=== PATIENT | female | born 1950 | race Caucasian/White ===

== ENCOUNTER 2017-05-26 09:45 | Inpatient (IN) | payer OTHER, MEDICARE ==
[2017-05-06 14:39] VITALS: BMI 44.0
--- NOTE | 2017-05-06 15:15 | PAT Medication Instructions ---
Service Date May 06, 2017. Current Home Medication List Alprazolam (Xanax), 0.25 MG PO UD PRN for Anxiety Azelastine Hcl-Fluticasone Pro (Dymista), 1-2 SPRY STEVE QAM Escitalopram Oxalate (Lexapro), 20 MG PO QAM Hctz/Losartan (Hyzaar 12.5MG/50MG), 1 TAB PO QAM Hydrocodon/Acetaminophen 5MG/300MG (Vicodin (5MG/300MG)), 1 TAB PO Q6H PRN for Pain Levothyroxine Sodium (Levothyroxine Sodium), 1 TAB PO QAM Methenamine Hippurate (Methenamine Hippurate), 1 TAB PO QAM Onabotulinumtoxina (Botox), Unknown Dose Pantoprazole (Pantoprazole Sodium), 1 TAB PO QAM Ranitidine (Zantac), 150 MG PO HS Solifenacin (Vesicare), 10 MG PO QAM [Steroid Inje], Unknown Dose Medication Instructions For Your Scheduled Surgery - Hold the following medications the morning of surgery: Solifenacin (Vesicare), 10 MG PO QAM Hctz/Losartan (Hyzaar 12.5MG/50MG), 1 TAB PO QAM Methenamine Hippurate (Methenamine Hippurate), 1 TAB PO QAM - Take the following medications the morning of surgery with a sip of water OTHERWISE NOTHING TO EAT OR DRINK AFTER MIDNIGHT: Azelastine Hcl-Fluticasone Pro (Dymista), 1-2 SPRY STEVE QAM Escitalopram Oxalate (Lexapro), 20 MG PO QAM Levothyroxine Sodium (Levothyroxine Sodium), 1 TAB PO QAM Pantoprazole (Pantoprazole Sodium), 1 TAB PO QAM Hydrocodon/Acetaminophen 5MG/300MG (Vicodin (5MG/300MG)), 1 TAB PO Q6H PRN for Pain (may take if needed up to 4 hours prior to surgery) Alprazolam (Xanax), 0.25 MG PO UD PRN for Anxiety - Take the following medications as scheduled the night before surgery: Hydrocodon/Acetaminophen 5MG/300MG (Vicodin (5MG/300MG)), 1 TAB PO Q6H PRN for Pain Ranitidine (Zantac), 150 MG PO HS Alprazolam (Xanax), 0.25 MG PO UD PRN for Anxiety If you have any questions please call us at [phone] or [phone] or [phone]
--- NOTE | 2017-05-06 15:53 | DIAGNOSTIC IMAGING REPORT ---
CHEST PREADMISSION(PA/LAT) CLINICAL HISTORY: Preoperative chest COMPARISON STUDY: No previous studies for comparison. FINDINGS: The heart is at the upper limits of normal in size. There is no failure. There is no focal pulmonary consolidation. There are no pleural effusions.[ IMPRESSION: No active disease in the chest. Electronically signed by: Biju Mobley M.D. 05/06/2017 3:52 PM Dictated Date/Time: 05/06/2017 3:52 PM
[2017-05-06 16:16] LABS: BASO % 0.7 %; BASO ABS # 0.04 K/uL (0-0.2); COMPLETE YES; EOS % 3.2 %; HEMATOCRIT 32.9 % (37-47); IG% 0.3 %; LYMPH % 35.9 %; LYMPH ABS # 2.15 K/uL (1.2-3.4); MEAN CELL VOLUME 89.6 fL (80-100); MEAN CORPUSCULAR HEMOGLOBIN 30.5 pg (25-34); MEAN PLATELET VOLUME 8.9 fL (7.4-10.4); MONO % 9.5 %; NEUT % 50.4 %; PLATELET COUNT 235 K/uL (130-400); RED BLOOD COUNT 3.67 M/uL (4.2-5.4); WHITE BLOOD COUNT 5.99 K/uL (4.8-10.8)
[2017-05-06 16:35] LABS: BUN/CREATININE RATIO 17.1 (10-20); CREATININE 1.31 mg/dl (0.60-1.20); POTASSIUM 4.3 mmol/L (3.5-5.1)
[2017-05-06 16:42] LABS: URINE APPEARANCE CLEAR (CLEAR); URINE BILIRUBIN NEG (NEG); URINE COLOR YELLOW; URINE EPITHELIAL CELL AUTO 20-30 /lpf (0-5); URINE NITRITE NEG (NEG); URINE SPECIFIC GRAVITY 1.008 (1.000-1.030); UROBILINOGEN NEG (NEG); ZZUR CULT IF INDIC CLEAN CATCH NO
[2017-05-06 16:50] LABS: MANUAL MICROSCOPIC REQUIRED? NO; REVIEW REQ? NO
[~2017-05-26] VITALS: Ht 154.9 cm; Wt 105.5 kg
[2017-05-26] VITALS (8 sets, daily range): BP systolic 111–161; BP diastolic 59–68; PULSE 63–89; TEMP 36.3–37.2; O2SAT 94–100; Ht 154.9 cm; Wt 105.5 kg
[~2017-05-26 09:45] MED LIST: ALPR-411 PO; AZEL30SP NAE; BOTU200I; CLINDAMYCIN 600 MG/54 ML D5W IV SCH; ESCI1TAB10 PO; HYDR-3419 PO; HYZ/50125 PO; LACTATED RINGER'S 1000ML 1,000 ML IV SCH; LEVO125T5 PO; MTHH1 PO; PRT40 PO; SOLI10TA2 PO; ZNTT/150 PO; [UNRECOGNIZED DRUG - REMARK]
[2017-05-26] MEDS ORDERED: ONDANSETRON INJ 2 MG/ML 2 ML VIAL IV PRN ×2 (10:00→14:30)
[2017-05-26] MEDS ORDERED: MEPERIDINE HCL 25 MG/ML CARP IV PRN (10:00)
[2017-05-26] MEDS ORDERED: LABETALOL HCL IV 5 MG/ML 20ML IV PRN (10:00)
[2017-05-26] MEDS ORDERED: HYDROmorphone INJ 1 MG/ML SYR IV PRN (10:00)
[2017-05-26] MEDS ORDERED: FENTANYL CITRATE INJ 50 MCG/1 ML 2 ML VIAL IV PRN (10:00)
[2017-05-26] MEDS ORDERED: ATROPINE SULFATE 0.1 MG/ML 5ML SYR IV PRN (10:00)
[2017-05-26] MEDS ORDERED: EpHEDrine SULFATE INJ 50 MG/ML AMP IV PRN (10:00)
--- NOTE | 2017-05-26 11:54 | History & Physical Bridge Note ---
H&P Re-Evaluation Bridge Note: I have examined the patient, reviewed the History & Physical and in the interval since the performance of the History & Physical I have noted the following changes of clinical significance: No changes noted
--- NOTE | 2017-05-26 11:57 | History and Physical ---
History & Physical Date May 26, 2017. Chief Complaint Back and leg pain History of Present Illness The patient is a 66 year old female with complaints of back and leg pain Additional History Hepatic Disease: No Endocrine Disorder: No Kidney Disease: No Hypertension: Yes Heart Disease: No Bleeding Tendencies: No Infectious Diseases: No Allergies Coded Allergies: Nitrofurantoin (Verified Allergy, Unknown, HEADACHE AND RASH, 05/26/17) Sulfamethoxazole w/Trimethoprim (Verified Allergy, Unknown, SORES ON SKIN AND IN THROAT, 05/26/17) Trimethoprim (Verified Allergy, Unknown, SORES, 05/26/17) Home Medications Scheduled Azelastine Hcl-Fluticasone Pro (Dymista), 1-2 SPRY STEVE QAM Escitalopram Oxalate (Lexapro), 20 MG PO QAM Hctz/Losartan (Hyzaar 12.5MG/50MG), 1 TAB PO QAM Levothyroxine Sodium (Levothyroxine Sodium), 1 TAB PO QAM Methenamine Hippurate (Methenamine Hippurate), 1 TAB PO QAM Pantoprazole (Pantoprazole Sodium), 1 TAB PO QAM Ranitidine (Zantac), 150 MG PO HS Scheduled PRN Alprazolam (Xanax), 0.25 MG PO UD PRN for Anxiety Hydrocodon/Acetaminophen 5MG/300MG (Vicodin (5MG/300MG)), 1 TAB PO Q6H PRN for Pain Miscellaneous Medications Onabotulinumtoxina (Botox), Unknown Dose [Steroid Inje], Unknown Dose Physical Examination Skin: warm/dry, no rash Eyes: normal inspection, EOMI, sclerae normal ENT: normal ENT inspection, pharynx normal Head: normocephalic, atraumatic Neck: supple, no adenopathy, trachea midline Respiratory/Chest: lungs clear, normal breath sounds, no respiratory distress Cardiovascular: regular rate, rhythm, no edema, no murmur Abdomen / GI: normal bowel sounds, non tender Back: normal inspection Extremities: normal inspection, normal range of motion Neurologic/Psych: no motor/sensory deficits, alert, normal reflexes, oriented x 3 Diagnosis Lumbar spinal stenosis with spondylolisthesis Plan of Treatment L4 5 decompression fusion possible L5-S1
[2017-05-26] MEDS ORDERED: FENTANYL CITRATE INJ 50 MCG/1 ML 2 ML VIAL ONE ×4 (11:58→15:03)
[2017-05-26] MEDS ORDERED: MIDAZOLAM HCL 1 MG/ML 2ML VIAL ONE (11:58)
[2017-05-26] MEDS ORDERED: SODIUM CHLORIDE 0.9% PF 50 ML VIAL ONE (12:17)
[2017-05-26] MEDS ORDERED: BACITRACIN 50000 UNIT VIAL ONE (12:17)
[2017-05-26] MEDS ORDERED: BUPIVACAINE/EPINEPHRINE 0.5% MPF 1:200,000 30 ML VIAL ONE (12:17)
[2017-05-26] MEDS ORDERED: HYDROmorphone INJ 2 MG/ML SYR/VIAL ONE (12:58)
[2017-05-26] MEDS ORDERED: PROPOFOL IV EMULSION 10 MG/ML 20 ML VIAL IV ONE (13:10)
[2017-05-26] MEDS ORDERED: ONDANSETRON INJ 2 MG/ML 2 ML VIAL ONE (13:10)
[2017-05-26] MEDS ORDERED: LIDOCAINE HCL 2% 2 ML VIAL (20MG/ML) ONE (13:10)
[2017-05-26] MEDS ORDERED: DEXAMETHASONE SOD INJ 4 MG/ML VIAL ONE (13:10)
[2017-05-26] MEDS ORDERED: NEOSTIGMINE METHYLSULFATE 1 MG/ML 10ML VIAL ONE (13:10)
[2017-05-26] MEDS ORDERED: GLYCOPYRROLATE INJ 0.2 MG/ML VIAL ONE (13:10)
[2017-05-26] MEDS ORDERED: EpHEDrine SULFATE 50MG/5ML SYR ONE (13:10)
[2017-05-26] MEDS ORDERED: FLOSEAL HEMOSTATIC MATRIX 10ML TOP ONE (13:32)
[2017-05-26] MEDS: LACTATED RINGER'S 1000ML 1,000 ML IV SCH ×2 (14:21→21:01)
[2017-05-26] MEDS ORDERED: SODIUM CHLORIDE 0.9% 1000ML 1,000 ML IV SCH (14:21)
--- NOTE | 2017-05-26 14:27 | [facility] Operative Report ---
Operative Report Operative Date May 26, 2017. Pre-Operative Diagnosis Lumbar Spinal Stenosis Post-Operative Diagnosis Lumbar Spinal Stenosis Procedure(s) Performed #1 lumbar decompression medial facet was foraminotomies L3 4 L4 5. #2 posterior spinal fusion L4 5. #3 placement posterior instrumentation L4 5. #4 interbody fusion L4 5. #5 placement peek cage 13 x 22 mm L4 5. #6 placement locally harvested morcellized autograft and posterior gutters. #7 placement infuse collagen sponge about mask graft in the posterior lateral gutters. Surgeon Kellee Decoration Checker Surgeon(s) Sabina Glover PA-C Estimated Blood Loss 275ML Findings Severe spinal stenosis with spondylolisthesis Specimens None per surgeon Description of Procedure Patient was met with preoperatively case discussed all questions addressed. After informed consent was obtained patient was taken to the operative suite placed in a prone position the Chris table on top Bart frame. All bony prominences were well-padded eyes inspected to ensure there is no external pressure placed upon them. This point the lumbar spine was prepped and draped nostril fashion. Sharp dissection with the assistance of Bovie cautery was performed onto an exposing the lamina and transverse processes of L4 5. From a caudal cephalad fashion complete laminectomy of L4 partial laminectomy of L3 was performed addressing severe lateral recess and foraminal stenosis. Pedicle screws then placed in L4 and L5 bilaterally with the assistance of fluoroscopy in the purposes debora placed. Through a transverse foraminal approach on the right a complete discectomy was performed and plate created to subcortical bleeding bone and a 13 x 26 mm the rods were then locked and final position bilaterally. The transverse processes of L4 and L5 burred to subcortical bleeding bone. Infuse calm sponge mask graft locally harvested morcellized autograft was placed in the posterior lateral gutters. 15 round KEVAN drain inserted. Incision was then closed with 1 Vicryl in the fascia 2-0 Vicryl subcutaneous C 4 Monocryl for final skin closure Steri-Strips sterile dressings placed. Patient we can take PACU stable condition. Please note Sabina Montoya was present throughout the entire procedure involved in patient positioning complex portions of the surgery and final skin closure. Peek cage filled with ostial amp bone graft tapped in position. I attest to the content of the Intraoperative Record and any orders documented therein. Any exceptions are noted below.
[2017-05-26] MEDS ORDERED: NALOXONE HCL 0.4 MG/1 ML VIAL/CARP IV PRN ×2 (14:30)
[2017-05-26] MEDS ORDERED: ALUMINUM/MAGNESIUM SUSP 30 ML UDC PO PRN (14:30)
[2017-05-26] MEDS ORDERED: CEFAZOLIN IV 2,000 MG in DEXTROSE 5% 50ML 50 ML IV SCH (14:30)
[2017-05-26] MEDS ORDERED: LORAZEPAM INJ 0.5 MG in SYRINGE 0.75 ML IV PRN (14:30)
[2017-05-26] MEDS ORDERED: FAMOTIDINE 20 MG TAB PO PRN (14:30)
[2017-05-26] MEDS ORDERED: DO NOT ADMINISTER FLU VACCINE PRN ×3 (14:30)
[2017-05-26] MEDS ORDERED: PROMETHAZINE HCL INJ 12.5 MG in SODIUM CHLORIDE 0.9% 50ML 50 ML IV PRN (14:30)
[2017-05-26] MEDS ORDERED: hydrOXYzine HCL 25 MG TAB PO PRN (14:30)
[2017-05-26] MEDS ORDERED: DO NOT ADMINISTER PNEUMOCOCCAL VACCINE PRN ×2 (14:30)
[2017-05-26] MEDS ORDERED: METOCLOPRAMIDE HCL INJ 5 MG/ML 2 ML VIAL IV PRN (14:30)
[2017-05-26] MEDS ORDERED: ACETAMINOPHEN 500 MG TAB PO PRN (14:30)
[2017-05-26] MEDS ORDERED: BISACODYL 10 MG SUPP PR PRN (14:30)
[2017-05-26] MEDS ORDERED: MAGNESIUM HYDROXIDE SUSP 30 ML UDC PO PRN (14:30)
[2017-05-26] MEDS ORDERED: ACETAMINOPHEN IV 100 ML IV PRN (14:30)
[2017-05-26] MEDS ORDERED: SOD PHOSPHATE/SOD BIPHOSPHATE ENEMA 132 ML BTL PR PRN (14:30)
[2017-05-26] MEDS ORDERED: LORAZEPAM 0.5 MG TAB PO PRN (14:30)
[2017-05-26] MEDS ORDERED: HYDROmorphone HCL 0.5MG/ML 50 ML CASSETTE ONE (14:40)
--- NOTE | 2017-05-26 15:31 | Anesthesiology Progress Note ---
Anesthesia Post Op Note Date & Time May 26, 2017 at 15:31 Vital Signs Pain Intensity: 4 Vital Signs Past 12 Hours Date Time Temp Pulse Resp B/P (MAP) Pulse Ox O2 Delivery O2 Flow Rate FiO2 05/26/17 15:25 36.4 70 16 131/61 97 Nasal Cannula 4 05/26/17 15:15 68 16 116/57 93 Nasal Cannula 4 05/26/17 15:05 74 16 150/63 98 Nasal Cannula 4 05/26/17 14:55 78 16 152/78 100 Oxymask 10 05/26/17 14:45 79 16 143/69 97 Oxymask 10 05/26/17 14:38 36.8 75 16 134/68 96 Oxymask 10 05/26/17 10:10 36.9 86 20 161/59 94 Room Air Notes Mental Status: alert / awake / arousable, participated in evaluation Pt Amnestic to Procedure: Yes Nausea / Vomiting: adequately controlled Pain: adequately controlled Airway Patency, RR, SpO2: stable & adequate BP & HR: stable & adequate Hydration State: stable & adequate Anesthetic Complications: no major complications apparent
[2017-05-26] MEDS: HYDROmorphone HCL 0.5MG/ML 50 ML CASSETTE IV PRN ×2 (15:41→23:08)
--- NOTE | 2017-05-26 16:30 | DIAGNOSTIC IMAGING REPORT ---
LUMBAR SPINE 2 OR 3 VIEW CLINICAL HISTORY: 66 years-old Female presenting with L4-L5 DECOMPRESSION/FUSION POSSIBLE L5-S1. TECHNIQUE: 2 fluoroscopic spot image(s) obtained as part of an intraoperative procedure. COMPARISON: 04/13/2017. FINDINGS/IMPRESSION: There has been interval bilateral transpedicular screw and debora fixation of L4-5 with laminectomy defect of L4 and interbody spacer. Grossly normal anatomic alignment. Please see surgical report for further details. Fluoroscopy dosage (mGy): Not available. Fluoroscopy time: 18 seconds. Number of fluoroscopic spot images: 2. Electronically signed by: Sanket Girard M.D. 05/26/2017 4:28 PM Dictated Date/Time: 05/26/2017 4:27 PM
[2017-05-26] MEDS ORDERED: PNEUMOCOCCAL POLYSACCHARIDES 25 MCG/0.5 ML VIAL/SYR IM. ONE (19:15)
[2017-05-26] MEDS ORDERED: INFLUENZA ADMINISTRATION CHARGE ONE (19:15)
[2017-05-26] MEDS ORDERED: PNEUMOCOCCAL ADMINISTRATION CHARGE ONE (19:15)
[2017-05-26] MEDS ORDERED: INFLUENZA VIRUS QUAD VACCINE 0.5 ML SYR IM. ONE (19:15)
[2017-05-26] MEDS ORDERED: INFLUENZA VACCINE HIGH DOSE 65+ 0.5 ML SYR IM. ONE (19:15)
[2017-05-26] MEDS: CEFAZOLIN IV 2,000 MG in SYRINGE 0 ML IV SCH (20:45)
[2017-05-26] MEDS: RANITIDINE HCL 150 MG TAB PO SCH (22:25)
[2017-05-26] MEDS: DOCUSATE SODIUM/SENNA 50/8.6MG TAB PO SCH (22:25)
[2017-05-26] MEDS: DEXAMETHASONE INJ 6 MG in SYRINGE 0 ML IV SCH (22:26)
[2017-05-27] VITALS: O2SAT 98
[2017-05-27] MEDS: CEFAZOLIN IV 2,000 MG in SYRINGE 0 ML IV SCH (03:43)
[2017-05-27 03:44] VITALS: BP 116/64; PULSE 65; TEMP 37.3; O2SAT 92
[2017-05-27] MEDS: LACTATED RINGER'S 1000ML 1,000 ML IV SCH (03:44)
[2017-05-27] MEDS: DEXAMETHASONE INJ 6 MG in SYRINGE 0 ML IV SCH ×2 (05:59→13:44)
[2017-05-27] MEDS ORDERED: NURSING VERBAL MED ORDER ONE (06:00)
[2017-05-27] MEDS ORDERED: HYDROmorphone INJ 1 MG/ML SYR IV PRN (06:00)
[2017-05-27] MEDS ORDERED: DC PCA SCH (06:00)
[2017-05-27] MEDS ORDERED: HYDROmorphone INJ 0.5 MG/0.5 ML SYR IV PRN (06:00)
[2017-05-27] MEDS: LEVOTHYROXINE 125 MCG TAB PO SCH (06:16)
--- NOTE | 2017-05-27 06:53 | Clinical Documentation Query ---
YOLIE Colvin : CLINICAL DOCUMENTATION QUERIES QUERY 1 OF 3 Patient is a 66 year old female who underwent elective posterior lumbar decompression and interbody spinal fusion on 05/26. BMI noted to be 44.0 kg/m*m. In order to capture this always clinically relevant data from the medical record, an associated condition must explicitly be documented by the provider. As appropriate, consider documentation as suggested below in order to capture the appropriate severity of illness and risk of mortality for your patient. In your clinical opinion is this patient: ( ) Obese ( ) Not Agree ( ) Other explanation of clinical findings (Please Explain) ( ) Unable to determine (Please Define) ( ) Need to Discuss The medical record reflects the following clinical findings, treatment, and risk factors. Clinical Indicators: BMI as noted above Treatment: n/a Risk Factors: Caloric intake > caloric expenditure QUERY 2 OF 3 Admission BUN, creatinine, and estimated GFR of 22 mg/dl, 1.31 mg/dl, and 49 ml/min. As appropriate, consider documentation as suggested below. Thank you. In your clinical opinion is this patient being managed for: ( ) Chronic kidney disease, stage 3 ( ) Not Agree ( ) Other explanation of clinical findings (Please Explain) ( ) Unable to determine (Please Define) ( ) Need to Discuss The medical record reflects the following clinical findings, treatment, and risk factors. Clinical Indicators: As above Treatment: Serial chemistries Risk Factors: Age, hypertension, medications QUERY 3 OF 3 PMH listed to include hypertension. However, home medication list includes: Alprazolam (Xanax), 0.25 MG PO UD PRN for Anxiety Azelastine Hcl-Fluticasone Pro (Dymista), 1-2 SPRY STEVE QAM Escitalopram Oxalate (Lexapro), 20 MG PO QAM Hctz/Losartan (Hyzaar 12.5MG/50MG), 1 TAB PO QAM Hydrocodon/Acetaminophen 5MG/300MG (Vicodin (5MG/300MG)), 1 TAB PO Q6H PRN for Pain Levothyroxine Sodium (Levothyroxine Sodium), 1 TAB PO QAM Methenamine Hippurate (Methenamine Hippurate), 1 TAB PO QAM Onabotulinumtoxina (Botox), Unknown Dose Pantoprazole (Pantoprazole Sodium), 1 TAB PO QAM Ranitidine (Zantac), 150 MG PO HS Solifenacin (Vesicare), 10 MG PO QAM [Steroid Inje], Unknown Dose In your clinical opinion is this patient being managed for: ( ) Anxiety, depression, GERD, hypothyroidism, recurrent UTI's, urinary frequency ( ) Not Agree ( ) Other explanation of clinical findings (Please Explain) ( ) Unable to determine (Please Define) ( ) Need to Discuss The medical record reflects the following clinical findings, treatment, and risk factors. Clinical Indicators: As above Treatment: As above Risk Factors: na Please clarify and document your clinical opinion in the progress notes and discharge summary. Terms such as "probable", "suspected", "likely", "questionable", "possible", or "still to be ruled out" are acceptable. IF IN AGREEMENT, YOU MUST DOCUMENT ABOVE DIAGNOSTIC STATEMENT IN DAILY PROGRESS NOTES AND DISCHARGE SUMMARY. This document is not part of the patient's record. Thank You, Sourav Bingham, RN [phone]
[2017-05-27 07:35] VITALS: BP 116/55; PULSE 68; TEMP 37.4; O2SAT 93
[2017-05-27] MEDS: OXYCODONE HCL IR 5 MG TAB (IMMEDIATE RELEASE) PO PRN ×2 (07:44→13:45)
[2017-05-27 07:58] LABS: COMPLETE YES; HEMATOCRIT 31.2 % (37-47); IG% 0.3 %; LYMPH % 8.2 %; LYMPH ABS # 0.86 K/uL (1.2-3.4); MEAN CELL VOLUME 88.1 fL (80-100); MEAN CORPUSCULAR HEMOGLOBIN 28.8 pg (25-34); MEAN CORPUSCULAR HGB CONC 32.7 g/dl (32-36); MEAN PLATELET VOLUME 8.4 fL (7.4-10.4); MONO % 3.3 %; NEUT % 88.2 %; PLATELET COUNT 221 K/uL (130-400); RED BLOOD COUNT 3.54 M/uL (4.2-5.4); WHITE BLOOD COUNT 10.54 K/uL (4.8-10.8)
[2017-05-27] MEDS: ESCITALOPRAM OXALATE 20 MG TAB PO SCH (08:23)
[2017-05-27] MEDS: PANTOprazole SOD 40 MG TAB PO SCH (08:23)
[2017-05-27] MEDS: LOSARTAN/HCTZ 50-12.5 EA TAB PO SCH (08:24)
[2017-05-27 08:33] LABS: BUN/CREATININE RATIO 15.5 (10-20); CALCIUM 8.8 mg/dl (8.5-10.1); CREATININE 1.12 mg/dl (0.60-1.20); POTASSIUM 3.9 mmol/L (3.5-5.1)
[2017-05-27] MEDS ORDERED: METHENAMINE HIPPURATE 1 GM TAB PO SCH (09:00)
[2017-05-27] MEDS ORDERED: RXC5 PO (12:08)
--- NOTE | 2017-05-27 12:09 | Discharge Instructions ---
Discharge Instructions Date of Service May 27, 2017. Admission Reason for Admission: Lumbar Spinal Stenosis Discharge Discharge Diagnosis / Problem: lumbar stenosis Discharge Goals Goal(s): Improve function Activity Recommendations Activity Limitations: per Instructions/Follow-up section . Instructions / Follow-Up Instructions / Follow-Up ACTIVITY RECOMMENDATIONS: SELF CARE INSTRUCTIONS AFTER THORACIC/LUMBAR FUSIONS 1. You may walk to your tolerance. It is good exercise for your legs and back. Expect some back and intermittent leg aches and pains. 2. You may perform "counter-top" level activities (make a sandwich, christina with a project, etc.). 3. No bending or lifting of more than 10 pounds or back twisting of any nature (roll like a log when turning in bed). 4. You may ride in a car for 20-30 minutes at a time. No driving until after your first visit with your doctor. 5. Frequent changes of position and restricting sitting to 30 minutes at a time will help limit the amount of back spasms and stiffness you may experience. 6. You may discontinue the use of ambulatory aids (cane, crutches, etc.) once your strength and confidence allow. 7. You may concession stand attendant the shower and let water strike your incision when you arrive home at least once daily. Do not take a tub bath, sit in a hot tub or go into a swimming pool until after your first recheck in the office. SPECIAL CARE INSTRUCTIONS: VERY IMPORTANT TO READ AND REVIEW A. Your surgical incision has been closed with a cosmetic suture under the skin that will dissolve in about 6 weeks. In 14 days, you can use a pair of clean scissors and cut the suture that is left outside of the skin at the ends of your incision. 1. The small skin tapes can be removed 7 days after surgery if they have not fallen off by that point. 2. You may keep the wound open to air as much as possible to promote healing after post-op day number 5 unless told otherwise by your doctor. 3. If you think the wound looks like it is becoming infected (redness or worsening drainage) and/or you are experiencing fever, chill or worsening back pain and muscle spasms, contact the office so that we may evaluate you as soon as possible. B. Complications are uncommon, but please contact us if you have any signs or symptoms of: 1. wound infection (fever higher than 102.5 degrees F, redness, separation of wound, drainage, or increasing pain from the incision) 2. blood clots in legs (pain, swelling, redness and warmth in legs) 3. urinary tract infection (fever higher than 102.5 degrees F, burning upon urination or increased frequency of urination) 4. nerve problems (inability to walk on your toes or heels, numbness, loss of bowel or bladder control) 5. any other symptoms that concern you C. Please call the office at if you have any concerns or questions about your operation or recovery. D. No smoking! Smoking drastically decreases the chance of a solid fusion. E. Do not take any anti-inflammatory medications (Indocin, Advil, Motrin, Aspirin, Naprosyn, etc.) as these may inhibit the chance of a solid fusion. Tylenol is okay to take for pain. MANAGING PAIN AFTER SPINAL SURGERY 1. Narcotic medication is intended for short-term use and will be provided for surgical pain. Surgical pain usually lasts for a period of 4-6 weeks. Narcotic medication includes Percocet, Vicodin, Darvocet, Tylenol #3 or Lortab. 2. Longer-term pain is more appropriately treated with non-narcotic medication such as Tylenol ES. 3. Muscle spasm is not appropriately treated with narcotics. Muscle relaxers such as Soma, Flexeril or Skelaxin can be used along with Tylenol ES. 4. Remember that we all live with some "aches and pains". This is not unusual or uncommon after an injury or as we get older. a. Back pain is expected and may include muscle spasms for 4 to 6 weeks after surgery. The pain should gradually improve. If the pain worsens for no apparent reason, please contact the office. b. Intermittent leg pain may also be experienced and should not be concerned about unless it worsens for no apparent reason. If so, please contact the office. 5. We will provide appropriate medication within the normal guidelines of their prescribed use. We will also be very cautious and aware of potential abuse and extended duration of patients' medication needs. a. Pain medications are for your comfort and to assist with sleep and rest so that the tissue can heal. They are not provided in order to return to normal activity and should not be used through the day. To do so or worsening pain at night can result from ongoing tissue damage and development of tolerance to the prescribed medicine. 6. Please allow 2-3 days to process refills. Prescriptions will not be mailed but must be picked up at the office. FOLLOW UP VISIT: Keep your scheduled follow-up appointment. Any questions, please call the office at . Current Hospital Diet Patient's current hospital diet: Regular Diet Discharge Diet Recommended Diet: Regular Diet Procedures Procedures Performed: #1 lumbar decompression medial facet was foraminotomies L3 4 L4 5. #2 posterior spinal fusion L4 5. #3 placement posterior instrumentation L4 5. #4 interbody fusion L4 5. #5 placement peek cage 13 x 22 mm L4 5. #6 placement locally harvested morcellized autograft and posterior gutters. #7 placement infuse collagen sponge about mask graft in the posterior lateral gutters. Pending Studies Studies pending at discharge: no Medical Emergencies . Who to Call and When: Medical Emergencies: If at any time you feel your situation is an emergency, please call 911 immediately. . Non-Emergent Contact Non-Emergency issues call your: Primary Care Provider . "Provider Documentation" section prepared by Tyree Goodson. . VTE Core Measure Inpt VTE Proph given/why not?: Katie Murray, SCD's
--- NOTE | 2017-05-27 13:51 | Progress Note ---
Progress Note Date of Service May 27, 2017. Progress Note Back pain is controlled leg symptoms markedly improved. Vital signs are stable. On exam she is interior bedside as good strength testing appears comfortable. Assessment status post lumbar depression fusion replant this time we anticipate therapy today and tomorrow home this weekend.
[2017-05-27 14:52] VITALS: BP 119/63; PULSE 76; TEMP 36.7; O2SAT 94
[2017-05-27 15:30] VITALS: O2SAT 94
[2017-05-27] MEDS: RANITIDINE HCL 150 MG TAB PO SCH (21:26)
[2017-05-27] MEDS: DOCUSATE SODIUM/SENNA 50/8.6MG TAB PO SCH (21:26)
[2017-05-27 22:56] VITALS: BP 118/65; PULSE 70; TEMP 37.5; O2SAT 94
[2017-05-28] MEDS: LEVOTHYROXINE 125 MCG TAB PO SCH (05:30)
[2017-05-28] MEDS: POLYETHYLENE (MIRALAX) 17 GM PACK PO SCH ×2 (05:30→12:04)
[2017-05-28 06:54] VITALS: BP 114/58; PULSE 56; TEMP 37.3; O2SAT 94
[2017-05-28] MEDS: ESCITALOPRAM OXALATE 20 MG TAB PO SCH (08:10)
[2017-05-28] MEDS: LOSARTAN/HCTZ 50-12.5 EA TAB PO SCH (08:10)
[2017-05-28] MEDS: PANTOprazole SOD 40 MG TAB PO SCH (08:10)
[2017-05-28] MEDS: OXYCODONE HCL IR 5 MG TAB (IMMEDIATE RELEASE) PO PRN ×2 (08:12→13:06)
--- NOTE | 2017-05-28 12:26 | Discharge Summary ---
Orthopedic Discharge Summary Admission Date/Reason May 26, 2017 at 12:00 Lumbar Spinal Stenosis. Discharge Date/Disposition May 28, 2017 Home Diagnosis Principal Diagnosis: Lumbar spinal stenosis Admission Physical Exam As per Admitting History & Physical. Hospital Course Patient underwent lumbar decompression fusion tolerated as well as taken to the orthopedic floor postop we. Postoperative day #1 is up and amatory progressed to postoperative day #2 leg symptoms were poorly improved substernally she was discharged home. Discharge orders and instructions found the chart for further review. Discharge Instructions Please refer to the electronic Patient Visit Report (Discharge Instructions) for additional information.
[2017-05-28 12:28] VITALS: BP 114/58; PULSE 56; TEMP 37.3; O2SAT 94
== END 2017-05-28 15:45 | disposition home or self-care (01) | DRG 454 ==
LOC: C.ACU 09:45 → C.MSN 12:00 → ENRESERV 15:12 → CANRESERV 15:12 → ENRESERV 15:19
PROVIDERS: ADMIT Orthopaedic Surgery Orthopaedic Surgery of the Spine; ATTEND Orthopaedic Surgery Orthopaedic Surgery of the Spine
PROC: 3E0U0GB Introduction of Recombinant Bone Morphogenetic Protein into Joints, Open Approach (ICD-10-PCS; principal; 2017-05-26 11:45)
PROC: 01NB3ZZ Release Lumbar Nerve, Percutaneous Approach (ICD-10-PCS; principal; 2017-05-26 11:45)
PROC: 0SG0071 Fusion of Lumbar Vertebral Joint with Autologous Tissue Substitute, Posterior Approach, Posterior Column, Open Approach (ICD-10-PCS; principal; 2017-05-26 11:45)
PROC: 0SG03AJ Fusion of Lumbar Vertebral Joint with Interbody Fusion Device, Posterior Approach, Anterior Column, Percutaneous Approach (ICD-10-PCS; principal; 2017-05-26 11:45)
PROC: 0ST20ZZ Resection of Lumbar Vertebral Disc, Open Approach (ICD-10-PCS; principal; 2017-05-26 11:45)
DX: M48.061 Spinal stenosis, lumbar region without neurogenic claudication (principal); Z68.41 Body mass index [BMI] 40.0-44.9, adult; M43.16 Spondylolisthesis, lumbar region; I12.9 Hypertensive chronic kidney disease with stage 1 through stage 4 chronic kidney disease, or unspecified chronic kidney disease; N18.3 Chronic kidney disease, stage 3 (moderate); K21.9 Gastro-esophageal reflux disease without esophagitis; D64.9 Anemia, unspecified; M19.90 Unspecified osteoarthritis, unspecified site; F41.9 Anxiety disorder, unspecified; F32.9 Major depressive disorder, single episode, unspecified; G47.33 Obstructive sleep apnea (adult) (pediatric); E66.01 Morbid (severe) obesity due to excess calories; Z79.899 Other long term (current) drug therapy; Z79.891 Long term (current) use of opiate analgesic

== ENCOUNTER 2017-06-01 20:59 | Inpatient (IN) | payer OTHER, MEDICARE ==
[~2017-06-01] VITALS: Ht 154.9 cm; Wt 104.5 kg
[~2017-06-01 20:59] MED LIST changes: -CLINDAMYCIN 600 MG/54 ML D5W IV SCH; -LACTATED RINGER'S 1000ML 1,000 ML IV SCH; +RXC5 PO; -SOLI10TA2 PO
[2017-06-01 21:10] VITALS: BP 152/67; PULSE 69; TEMP 36.9; O2SAT 96; Ht 154.9 cm; Wt 104.5 kg
[2017-06-01] MEDS ORDERED: NURSING VERBAL MED ORDER ONE ×2 (21:15→21:45)
[2017-06-01] MEDS ORDERED: ONDANSETRON INJ 2 MG/ML 2 ML VIAL IV PRN (21:30)
--- NOTE | 2017-06-01 21:55 | DIAGNOSTIC IMAGING REPORT ---
LUMBAR SPINE 2 OR 3 VIEWS CLINICAL HISTORY: back/leg pain pain COMPARISON STUDY: 04/13/2017 FINDINGS: Interval posterior laminectomy and fusion at L4-L5. Disc spacer is present. There is a minimal grade 1 anterolisthesis of L4 on L5 unchanged from the prior exam. There are no compression deformity. IMPRESSION: Postoperative changes noted including fusion of the L4-L5 lumbar vertebral bodies. Alignment is maintained compared to the preoperative images of 04/13/2017 The above report was generated using voice recognition software. It may contain grammatical, syntax or spelling errors. Electronically signed by: Marvel Castanon M.D. 06/01/2017 9:53 PM Dictated Date/Time: 06/01/2017 9:52 PM
[2017-06-01] MEDS ORDERED: ALPRAZOLAM 0.5 MG TAB PO PRN (22:30)
[2017-06-01] MEDS: DEXAMETHASONE INJ 8 MG in SYRINGE 0 ML IV SCH (22:34)
[2017-06-01] MEDS: HYDROmorphone INJ 1 MG/ML SYR IV PRN (22:42)
[2017-06-01 23:03] VITALS: BP 146/71; PULSE 64; TEMP 36.9; O2SAT 97
[2017-06-01] MEDS: OXYCODONE HCL IR 5 MG TAB (IMMEDIATE RELEASE) PO PRN (23:29)
[2017-06-02] VITALS (10 sets, daily range): BP systolic 125–144; BP diastolic 67–82; PULSE 53–76; TEMP 36.3–37.2; O2SAT 94–99
[2017-06-02] MEDS: OXYCODONE HCL IR 5 MG TAB (IMMEDIATE RELEASE) PO PRN ×2 (04:06→20:06)
[2017-06-02] MEDS: LEVOTHYROXINE 125 MCG TAB PO SCH (05:57)
[2017-06-02] MEDS: SODIUM CHLORIDE 0.9% 1000ML 1,000 ML IV SCH ×7 (07:39→22:55)
[2017-06-02] MEDS: HYDROmorphone INJ 1 MG/ML SYR IV PRN ×2 (07:40→09:50)
[2017-06-02] MEDS ORDERED: NURSING VERBAL MED ORDER ONE ×2 (07:45→11:00)
[2017-06-02] MEDS: LOSARTAN/HCTZ 50-12.5 EA TAB PO SCH (08:47)
[2017-06-02] MEDS: ESCITALOPRAM OXALATE 20 MG TAB PO SCH (08:47)
[2017-06-02] MEDS: METHENAMINE HIPPURATE 1 GM TAB PO SCH (08:48)
[2017-06-02] MEDS: PANTOprazole SOD 40 MG TAB PO SCH (08:48)
[2017-06-02] MEDS: DEXAMETHASONE INJ 8 MG in SYRINGE 0 ML IV SCH ×2 (09:33→21:31)
--- NOTE | 2017-06-02 10:25 | History and Physical ---
History & Physical Date Jun 02, 2017. Chief Complaint Back and bilateral leg pain right greater than left. History of Present Illness The patient is a 66 year old female with complaints of bilateral leg pain right greater than left. Symptoms began when she return home after surgery. She's progressed over the weekend was worth worsening discomfort with standing and ambulation. Describes pain as involving the right buttock anterior thigh. The pain does not extend below the knees. She does not note any new changes in bowel bladder function. She notes no weakness. Trauma fall. Past Medical/Surgical History Medical Problems: (1) Lumbar stenosis with neurogenic claudication Additional History Hepatic Disease: No Endocrine Disorder: No Kidney Disease: No Hypertension: Yes Heart Disease: No Bleeding Tendencies: No Infectious Diseases: No Allergies Coded Allergies: Nitrofurantoin (Verified Allergy, Unknown, HEADACHE AND RASH, 05/26/17) Sulfamethoxazole w/Trimethoprim (Verified Allergy, Unknown, SORES ON SKIN AND IN THROAT, 05/26/17) Trimethoprim (Verified Allergy, Unknown, SORES, 05/26/17) Home Medications Scheduled Azelastine Hcl-Fluticasone Pro (Dymista), 1-2 SPRY STEVE QAM Escitalopram Oxalate (Lexapro), 20 MG PO QAM Hctz/Losartan (Hyzaar 12.5MG/50MG), 1 TAB PO QAM Levothyroxine Sodium (Levothyroxine Sodium), 1 TAB PO QAM Methenamine Hippurate (Methenamine Hippurate), 1 TAB PO QAM Pantoprazole (Pantoprazole Sodium), 1 TAB PO QAM Ranitidine (Zantac), 150 MG PO HS Scheduled PRN Alprazolam (Xanax), 0.25 MG PO UD PRN for Anxiety Hydrocodon/Acetaminophen 5MG/300MG (Vicodin (5MG/300MG)), 1 TAB PO Q6H PRN for Pain Oxycodone HCl (Oxycodone HCl), 5-10 MG PO Q4H PRN for Moderate - severe pain Miscellaneous Medications Onabotulinumtoxina (Botox), Unknown Dose [Steroid Inje], Unknown Dose Physical Examination Skin: warm/dry, no rash Eyes: normal inspection, EOMI, sclerae normal ENT: normal ENT inspection, pharynx normal Head: normocephalic, atraumatic Neck: supple, no adenopathy, trachea midline Respiratory/Chest: lungs clear, normal breath sounds, no respiratory distress Cardiovascular: regular rate, rhythm, no edema, no murmur Abdomen / GI: normal bowel sounds, non tender Back: normal inspection Extremities: normal inspection, normal range of motion Neurologic/Psych: no motor/sensory deficits, alert, normal reflexes, oriented x 3 Diagnosis Status post lumbar decompression fusion with evidence of postop seroma and migration of hardware. Plan of Treatment This time we'll make her nothing by mouth obtain a stat MRI lumbar spine anticipate possible I&D lumbar spine.
[2017-06-02] MEDS ORDERED: BACITRACIN 50000 UNIT VIAL ONE (10:50)
[2017-06-02] MEDS ORDERED: BUPIVACAINE/EPINEPHRINE 0.5% MPF 1:200,000 30 ML VIAL ONE (10:50)
[2017-06-02] MEDS ORDERED: MIDAZOLAM HCL 1 MG/ML 2ML VIAL ONE (11:03)
[2017-06-02] MEDS ORDERED: FENTANYL CITRATE INJ 50 MCG/1 ML 2 ML VIAL ONE ×2 (11:03→11:46)
[2017-06-02] MEDS ORDERED: CEFAZOLIN SOD 2000MG/10 ML IV PUSH IV ONE (11:08)
--- NOTE | 2017-06-02 11:09 | DIAGNOSTIC IMAGING REPORT ---
MRI LUMBAR SPINE W/O CONTRAST CLINICAL HISTORY: Severe postop low back pain. Inability to ambulate. TECHNIQUE: Sagittal and axial T1, T2 and STIR images were obtained. COMPARISON STUDY: Conventional radiographic study dated 06/01/2017 , outside MRI dated 02/17/2017 OBSERVATIONS: There is a partially visualized bilateral sacral edema. Insufficiency fractures cannot be excluded. This finding was present on the outside MRI study dated 02/17/2017 L1-2: No disc protrusions or extrusions. No evidence of spinal canal or neural foraminal compromise. L2-3: There is a small right posterior lateral disc protrusion which mildly deforms the right anterolateral aspect of the thecal sac. This finding remains unchanged from the prior outside examination L3-4: No disc protrusions or extrusions. No evidence of spinal canal or neural foraminal compromise. L4-5: There are postsurgical changes of a discectomy and interbody fusion. There is posterior pedicle screw fixation. There is artifact secondary to the spinal hardware. There are postsurgical changes present within the soft tissues. L5-S1: No disc protrusions or extrusions. No evidence of spinal canal or neural foraminal compromise. No abnormalities of the conus are visualized. Beginning at the mid L2 level, there is a large mixed subdural and epidural hematoma which demonstrates significant nerve root compression most pronounced at the L4 and L5 levels. This finding will be called/faxed.. IMPRESSION: 1. Large mixed subdural and epidural posterior hematoma extending from the mid L2 level to the L5-S1 level. This results in significant nerve root compression most pronounced the L4 and L5 levels. Electronically signed by: Biju Mobley M.D. 06/02/2017 11:07 AM Dictated Date/Time: 06/02/2017 10:55 AM
[2017-06-02] MEDS ORDERED: EpHEDrine SULFATE INJ 50 MG/ML AMP IV PRN (11:15)
[2017-06-02] MEDS ORDERED: FENTANYL CITRATE INJ 50 MCG/1 ML 2 ML VIAL IV PRN (11:15)
[2017-06-02] MEDS ORDERED: HYDROmorphone INJ 1 MG/ML SYR IV PRN ×2 (11:15→12:45)
[2017-06-02] MEDS ORDERED: ATROPINE SULFATE 0.1 MG/ML 5ML SYR IV PRN (11:15)
[2017-06-02] MEDS ORDERED: ONDANSETRON INJ 2 MG/ML 2 ML VIAL IV PRN ×2 (11:15→12:15)
--- NOTE | 2017-06-02 11:18 | Progress Note ---
Progress Note Date of Service Jun 02, 2017. Progress Note MRI reviewed. Demonstrates evidence of large postop seroma with significant thecal compression throughout the operative area at L4 5. Again I suspect migration of the L5 pedicle screw in the right. Assessment status post lumbar depression fusion with postop seroma. Plan this time we are going to go to the OR for I&D lumbar spine evaluation hardware possible replacement of the L5 5 screw on the right.
[2017-06-02] MEDS ORDERED: HYDROmorphone INJ 2 MG/ML SYR/VIAL ONE ×3 (11:46→12:20)
[2017-06-02] MEDS ORDERED: CEFAZOLIN IV 3,000 MG in SYRINGE 0 ML IV SCH (12:00)
--- NOTE | 2017-06-02 12:12 | [facility] Operative Report ---
Operative Report Operative Date Jun 02, 2017. Pre-Operative Diagnosis Status post lumbar decompression fusion with evidence of postop seroma and migration of hardware. Post-Operative Diagnosis Same Procedure(s) Performed #1 evacuation of hematoma seroma lumbar spine. #2 removal of L5 pedicle screw on the right. #3 placement of L5 pedicle screw in the right. Surgeon Dr Goodson [place] Aide Surgeon(s) Sabina Glover PA-C Estimated Blood Loss 40ml Findings Lumbar seroma/hematoma with fractured L5 pedicle and loosening of L5 pedicle screw. Specimens A. Explanted hardware Description of Procedure Patient was met with preoperatively case discussed all questions addressed. After informed consent obtained patient was taken to the operative suite underwent intubation and placed in a prone position the Chris table on top Bart frame. All bony prominences well-padded eyes inspected to ensure no external pressure placed upon them. This point the lumbar spine was prepped and draped nostril fashion. Sharp dissection was performed to the previous incision site down to and exposing the epidural space. Evidence of a significant collection of seroma and hematoma was identified and evacuated. After this is complete did assess the right L5 pedicle screw. I removed the debora and screw on the right. Evidence of a fractured lateral order of the pedicle was noted. I was able to reposition the pedicle more medial and noting excellent fixation. Subsequently the debora was replaced and and locked in position. A cross-link was locked in position. 15 round KEVAN drain inserted. Incision then closed with 1 Vicryl fascia 2-0 Vicryl subcutaneous C 4 Monocryl for Starr closure Steri-Strips sterile dressings placed. Patient we can take PACU stable condition. Please note Sabina Montoya was present at the entire procedure involved in patient positioning complex portions of the surgery and final skin closure. I attest to the content of the Intraoperative Record and any orders documented therein. Any exceptions are noted below.
[2017-06-02] MEDS ORDERED: DO NOT ADMINISTER PNEUMOCOCCAL VACCINE PRN (12:15)
[2017-06-02] MEDS ORDERED: BISACODYL 10 MG SUPP PR PRN (12:15)
[2017-06-02] MEDS ORDERED: PROMETHAZINE HCL INJ 12.5 MG in SODIUM CHLORIDE 0.9% 50ML 50 ML IV PRN (12:15)
[2017-06-02] MEDS ORDERED: LORAZEPAM 0.5 MG TAB PO PRN (12:15)
[2017-06-02] MEDS ORDERED: LORAZEPAM INJ 0.5 MG in SYRINGE 0 ML IV PRN (12:15)
[2017-06-02] MEDS ORDERED: ACETAMINOPHEN 500 MG TAB PO PRN (12:15)
[2017-06-02] MEDS ORDERED: DO NOT ADMINISTER FLU VACCINE PRN (12:15)
[2017-06-02] MEDS ORDERED: SOD PHOSPHATE/SOD BIPHOSPHATE ENEMA 132 ML BTL PR PRN (12:15)
[2017-06-02] MEDS ORDERED: NALOXONE HCL 0.4 MG/1 ML VIAL/CARP IV PRN (12:15)
[2017-06-02] MEDS ORDERED: METOCLOPRAMIDE HCL INJ 5 MG/ML 2 ML VIAL IV PRN (12:15)
[2017-06-02] MEDS ORDERED: HYDROmorphone INJ 0.5 MG/0.5 ML SYR IV PRN ×2 (12:15→12:45)
[2017-06-02] MEDS ORDERED: MAGNESIUM HYDROXIDE SUSP 30 ML UDC PO PRN (12:15)
[2017-06-02] MEDS ORDERED: hydrOXYzine HCL 25 MG TAB PO PRN (12:15)
[2017-06-02] MEDS ORDERED: ALUMINUM/MAGNESIUM SUSP 30 ML UDC PO PRN (12:15)
[2017-06-02] MEDS ORDERED: ACETAMINOPHEN IV 100 ML IV PRN (12:15)
[2017-06-02] MEDS ORDERED: ROCURONIUM BROMIDE 10 MG/ML 5 ML VIAL IV ONE (12:17)
[2017-06-02] MEDS ORDERED: ONDANSETRON INJ 2 MG/ML 2 ML VIAL ONE ×2 (12:17→12:36)
[2017-06-02] MEDS ORDERED: LIDOCAINE HCL 2% 2 ML VIAL (20MG/ML) ONE (12:17)
[2017-06-02] MEDS ORDERED: PROPOFOL IV EMULSION 10 MG/ML 20 ML VIAL IV ONE (12:17)
[2017-06-02] MEDS ORDERED: DEXAMETHASONE SOD INJ 4 MG/ML VIAL ONE (12:17)
--- NOTE | 2017-06-02 12:17 | DIAGNOSTIC IMAGING REPORT ---
LUMBAR SPINE, INTRAOPERATIVE FLUOROSCOPY HISTORY: Incision and drainage. Screw placement.. FLUOROSCOPY TIME: 8 seconds. FINDINGS: Intraoperative fluoroscopy was provided for the lumbar spine. There is again noted posterior decompression fusion at L4-L5 with pedicle screws and rods. The hardware appears intact. 2 fluoroscopic spot images were obtained. IMPRESSION: Fluoroscopy provided for a incision and drainage at the L4-L5 laminectomy site. Electronically signed by: Karri Hurtado M.D. 06/02/2017 12:16 PM Dictated Date/Time: 06/02/2017 12:14 PM
[2017-06-02] MEDS ORDERED: GLYCOPYRROLATE INJ 0.2 MG/ML VIAL ONE (12:36)
[2017-06-02] MEDS ORDERED: ESMOLOL HCL 10 MG/ML 10 ML VIAL ONE (12:36)
[2017-06-02] MEDS ORDERED: NEOSTIGMINE METHYLSULFATE 1 MG/ML 10ML VIAL ONE (12:37)
[2017-06-02] MEDS ORDERED: HydrALAZINE HCL 20 MG/ML VIAL IV. PRN (13:30)
[2017-06-02] MEDS ORDERED: ALPRAZOLAM 0.5 MG TAB PO PRN (13:30)
--- NOTE | 2017-06-02 13:58 | Anesthesiology Progress Note ---
Anesthesia Post Op Note Date & Time Jun 02, 2017 at 13:55 Vital Signs Pain Intensity: 0 Vital Signs Past 12 Hours Date Time Temp Pulse Resp B/P (MAP) Pulse Ox O2 Delivery O2 Flow Rate FiO2 06/02/17 13:50 36.5 59 16 121/65 100 Nasal Cannula 4 06/02/17 13:40 36.5 63 16 135/52 100 Nasal Cannula 4 06/02/17 13:30 36.5 73 16 143/62 100 Nasal Cannula 4 06/02/17 13:20 76 16 156/93 100 Nasal Cannula 4 06/02/17 13:10 62 20 164/58 100 Nasal Cannula 4 06/02/17 13:00 65 18 168/74 100 Nasal Cannula 4 06/02/17 12:50 64 18 137/63 100 Oxymask 10 06/02/17 12:40 69 18 160/55 95 Oxymask 10 06/02/17 12:30 36.9 77 14 142/49 95 Oxymask 10 06/02/17 07:15 Room Air 06/02/17 06:55 36.8 76 17 144/67 (92) 96 Room Air Notes Mental Status: alert / awake / arousable, participated in evaluation Pt Amnestic to Procedure: Yes Nausea / Vomiting: adequately controlled Pain: adequately controlled Airway Patency, RR, SpO2: stable & adequate BP & HR: stable & adequate, see Notes Hydration State: stable & adequate Anesthetic Complications: no major complications apparent Ms. Molina was noted have have several runs of what appeared to be PVC's in PACU. Patient denied any LOCKETT, vision changes, SOB or chest pains. Pulse present throughout beats. This happened several times and she would return to NSR otherwise. I alerted surgeon and decision was made to send the patient to telemetry and consult the hospitalist service. PA from their service saw patient at bedside and felt it was appropriate to send her to telemetry, which was done. Patient is awake and conversant and without complaint.
--- NOTE | 2017-06-02 14:03 | Medical Consult ---
Consultation Date of Consultation: Jun 02, 2017. Attending Physician: Tyree Goodson D.O. Reason for Consultation: Runs of PVCs History of Present Illness Patient is a 66 y/o female, with PMHx of HTN, hypothyroidism, CKD stage III, depression, and GERD, s/p evacuation of hematoma seroma lumbar spine, removal of L5 pedicle screw on the right, and placement of L5 pedicle screw in the right by Dr. Goodson on 06/02. The hospitalist team was consulted due to runs of PVCs. Patient was seen in PACU. Denies any complaints. Still groggy from procedure. Pain is well controlled. No nausea/vomiting. No BM/flatus postop. Denies palpitations. Denies cardiac history. 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 Follows w/ nephrology for CKD, ID for recurrent UTIs. Patient denies any fever, chills, sweats, lightheadedness, dizziness, vision changes, CP, palpitations, edema, SOB, wheezing, cough, abdominal pain, nausea, vomiting, diarrhea, urinary symptoms, melena, numbness/tingling, weakness, anxiety/ depression, active bleeding, or new skin discoloration/changes. Past Medical/Surgical History Medical history: HTN hypothyroidism CKD stage III GERD depression recurrent UTI Surgical history: s/p evacuation of hematoma seroma lumbar spine, removal of L5 pedicle screw on the right, and placement of L5 pedicle screw in the right Knee replacement cholecystectomy hysterectomy tubal ligation Family History HTN cardiac issues pancreatic cancer Social History Smoking Status: Never Smoker Alcohol Use: none Allergies Coded Allergies: Nitrofurantoin (Verified Allergy, Unknown, HEADACHE AND RASH, 05/26/17) Sulfamethoxazole w/Trimethoprim (Verified Allergy, Unknown, SORES ON SKIN AND IN THROAT, 05/26/17) Trimethoprim (Verified Allergy, Unknown, SORES, 05/26/17) Home Medications Reported Home Medications Medications Dose Route/Sig Max Daily Dose Days Date Category Dose Instructions Oxycodone HCl 5 Mg Tab 5-10 Mg PO Q4H PRN 30 05/27/17 Rx [Steroid Inje] Unknown Strength Unknown Dose 05/06/17 Reported STEROID INJECTION - LEFT HIP - APR 01, 2017 - NO MORE INJECTIONS SCHEDULED BEFORE SURGERY Botox (Onabotulinumtoxina) Unknown Strength Inj Unknown Dose 05/06/17 Reported BOTOX INJECTION APR 10, 2017 - THIS WAS HER LAST INJECTION USED FOR URINARY INCONTINENCE Dymista (Azelastine Hcl-Fluticasone Pro) 1 Spr Spr 1-2 [place] STEVE QAM 30 05/06/17 Reported Methenamine Hippurate 1 Gm Tab 1 Tab PO QAM 05/06/17 Reported Zantac (Ranitidine HCl) 150 Mg Tab 150 Mg PO HS 05/06/17 Reported Vicodin (5MG/300MG) (Hydrocodon/Acetaminophen 5MG/300MG) 1 Tab Tab 1 Tab PO Q6H PRN 05/06/17 Reported MED LIST READS 5MG/325MG Hyzaar 12.5MG/50MG (HCTZ/Losartan Potassium) Tab 1 Tab PO QAM 05/06/17 Reported Levothyroxine Sodium 125 Mcg Tab 1 Tab PO QAM 90 05/06/17 Reported Lexapro (Escitalopram Oxalate) 20 Mg Tab 20 Mg PO QAM 05/06/17 Reported Xanax (Alprazolam) 0.5 Mg Tab 0.25 Mg PO UD PRN 05/06/17 Reported Pantoprazole Sodium (Pantoprazole) 40 Mg Tab 1 Tab PO QAM 05/06/17 Reported Current Inpatient Medications Current Inpatient Medications Medications (Trade) Dose Ordered Sig/Rishabh Route Start Time Stop Time Status Last Admin Dose Admin Sodium Chloride 1,000 ml @ 150 mls/hr Q6H40M IV 06/01/17 21:30 07/01/17 21:29 06/02/17 07:43 150 MLS/HR Hydromorphone HCl (Dilaudid Inj) 1 mg Q2H PRN IV 06/01/17 21:30 06/15/17 21:29 06/02/17 09:50 1 MG Oxycodone HCl (Roxicodone Immediate Rel Tab) `1-2 tabs for pain 1 tab ... Q4H PRN PO 06/01/17 21:30 06/15/17 21:29 06/02/17 04:06 10 MG Dexamethasone Sodium Phosphate 8 mg/Syringe 2 ml @ 1 mls/min Q12H IV 06/01/17 22:00 07/01/17 21:59 06/02/17 09:33 1 MLS/MIN Alprazolam (Xanax Tab) 0.5 mg DAILY PRN PO 06/01/17 22:30 07/01/17 22:29 Escitalopram Oxalate (Lexapro Tab) 20 mg QAM PO 06/02/17 09:00 07/02/17 08:59 06/02/17 08:47 20 MG HCTZ/Losartan Potassium (Hyzaar 50-12.5 Tab) 1 tab QAM PO 06/02/17 09:00 07/02/17 08:59 06/02/17 08:47 1 TAB Levothyroxine Sodium (Synthroid Tab) 125 mcg DAILYBB PO 06/02/17 06:00 07/02/17 05:59 06/02/17 05:57 125 MCG Methenamine Hippurate (Urex Tab) 1 gm QAM PO 06/02/17 09:00 06/07/17 08:59 06/02/17 08:48 1 GM Pantoprazole Sodium (Protonix Tab) 40 mg QAM PO 06/02/17 09:00 07/02/17 08:59 06/02/17 08:48 40 MG Ranitidine HCl (zANTac TAB) 150 mg HS PO 06/02/17 21:00 07/02/17 20:59 Miscellaneous Information (Order Awaiting Action) 1 ea QS N/A 06/02/17 00:00 07/02/17 00:00 Fentanyl Citrate (Fentanyl Inj) 25 mcg Q5M PRN IV 06/02/17 11:15 06/02/17 17:00 Hydromorphone HCl (Dilaudid Inj) 0.25 mg Q5M PRN IV 06/02/17 11:15 06/02/17 17:00 Ondansetron HCl (Zofran Inj) 4 mg ONE PRN IV 06/02/17 11:15 06/02/17 17:00 Ephedrine Sulfate (EpHEDrine SULFATE INJ) 5 mg Q5M PRN IV 06/02/17 11:15 06/02/17 17:00 Atropine Sulfate (Atropine Sulfate 0.1MG/Ml Inj) 0.5 mg Q1M PRN IV 06/02/17 11:15 06/02/17 17:00 Cefazolin Sodium 3000 mg/Syringe 15 ml @ 3 mls/min 1200 IV 06/02/17 12:00 06/02/17 18:00 06/02/17 11:18 3 MLS/MIN Promethazine HCl 12.5 mg/Sodium Chloride 50.5 ml @ 202 mls/hr Q6H PRN IV 06/02/17 12:15 07/02/17 12:14 Ondansetron HCl (Zofran Inj) 4 mg Q6H PRN IV 06/02/17 12:15 07/02/17 12:14 Metoclopramide HCl (Reglan Inj) 10 mg Q6H PRN IV 06/02/17 12:15 07/02/17 12:14 Lorazepam (Ativan Tab) 0.5 mg Q8H PRN PO 06/02/17 12:15 07/02/17 12:14 Lorazepam 0.5 mg/ Syringe 0.25 ml @ 1 mls/min Q8H PRN IV 06/02/17 12:15 07/02/17 12:14 Pneumococcal Polysaccharide Vaccine 1 ea PRN PRN N/A 06/02/17 12:15 07/02/17 12:14 Influenza Virus Vacc Triv Types A&B 1 ea PRN PRN N/A 06/02/17 12:15 07/02/17 12:14 Polyethylene (Miralax Powder Packet) 17 gm Q6 PO 06/04/17 06:00 07/04/17 05:59 Bisacodyl (Dulcolax Supp) 10 mg DAILY PRN [place] 06/02/17 12:15 07/02/17 12:14 Magnesium Hydroxide (Milk Of Magnesia Susp) 30 ml DAILY PRN PO 06/02/17 12:15 07/02/17 12:14 Oxycodone HCl (Roxicodone Immediate Rel Tab) 5-10mg prn moderate to sev... Q4H PRN PO 06/03/17 06:00 06/17/17 05:59 Cefazolin Sodium 2000 mg/Syringe 10 ml @ 100 mls/hr Q8H IV 06/02/17 19:00 06/03/17 03:05 Sodium Chloride 1,000 ml @ 150 mls/hr Q6H40M IV 06/02/17 12:05 07/02/17 12:04 Acetaminophen (Tylenol Tab) 1,000 mg Q8H PRN PO 06/02/17 12:15 07/02/17 12:14 Acetaminophen 100 ml @ 400 mls/hr Q8H PRN IV 06/02/17 12:15 07/02/17 12:14 Naloxone HCl (Narcan Inj) 0.1 mg Q5M PRN IV 06/02/17 12:15 07/02/17 12:14 Senna/Docusate Sodium (Senokot S Tab) 2 tab HS PO 06/02/17 21:00 07/02/17 20:59 Sodium Biphosphate/ Sodium Phosphate (Fleet Enema) 132 ml ONE PRN [place] 06/02/17 12:15 07/02/17 12:14 Hydroxyzine HCl (Vistaril Tab) 25 mg Q8H PRN PO 06/02/17 12:15 07/02/17 12:14 Al Hydroxide/Mg Hydroxide (Maalox Susp) 30 ml Q6H PRN PO 06/02/17 12:15 07/02/17 12:14 Diphenhydramine HCl (Benadryl Cap) 25 mg Q6H PRN PO 06/02/17 12:15 07/02/17 12:14 Hydromorphone HCl (Dilaudid Inj) 0.5 mg Q3H PRN IV 06/02/17 12:45 06/16/17 12:44 Hydromorphone HCl (Dilaudid Inj) 1 mg Q3H PRN IV 06/02/17 12:45 06/16/17 12:44 Physical Exam Date Time Temp Pulse Resp B/P (MAP) Pulse Ox O2 Delivery O2 Flow Rate FiO2 06/02/17 13:10 62 20 164/58 100 Nasal Cannula 4 06/02/17 13:00 65 18 168/74 100 Nasal Cannula 4 06/02/17 12:50 64 18 137/63 100 Oxymask 10 06/02/17 12:40 69 18 160/55 95 Oxymask 10 06/02/17 12:30 36.9 77 14 142/49 95 Oxymask 10 06/02/17 07:15 Room Air 06/02/17 06:55 36.8 76 17 144/67 (92) 96 Room Air 06/01/17 23:20 Room Air 06/01/17 23:03 36.9 64 17 146/71 (96) 97 Room Air 06/01/17 21:10 36.9 69 19 152/67 96 Room Air General Appearance: no apparent distress, + obese, + pertinent finding (O2 NC ) Head: normocephalic, atraumatic Eyes: normal inspection, PERRL ENT: hearing grossly normal Neck: supple Respiratory/Chest: lungs clear, no respiratory distress, no accessory muscle use Cardiovascular: regular rate, rhythm Abdomen/GI: normal bowel sounds, non tender, soft Extremities/Musculoskelatal: + pertinent finding (TEDs/SCDs on ) Neurologic/Psych: alert, oriented x 3, + pertinent finding (groggy postop ) Skin: normal color, warm/dry, no rash Assessment & Plan Patient is a 66 y/o female, with PMHx of HTN, hypothyroidism, CKD stage III, depression, and GERD, s/p evacuation of hematoma seroma lumbar spine, removal of L5 pedicle screw on the right, and placement of L5 pedicle screw in the right by Dr. Goodson on 06/02. s/p evacuation of hematoma seroma lumbar spine, removal of L5 pedicle screw on the right, and placement of L5 pedicle screw in the right by Dr. Goodson on 05/14: - Surgical management, pain management, PT/OT, and DVT prophylaxis as per primary team - Follow postop CBC and PRP PVCs- asymptomatic: - Transfer to tele for cardiac monitoring - EKG QAM and PRN for chest pain - Check PRP and mag level - Consider BB and CCB, but asymptomatic at this time- will monitor overnight HTN: - Hold Losartan/HCTZ pending postop PRP - Hydralazine IV 10 mg q6hrs PRN sbp >180 and dbp >100 Hypothyroidism: Continue Synthroid 125 mcg daily CKD stage III: Follow PRP Depression: Continue Xanax and Lexapro Recurrent UTI: Continue Hiprex GERD: Continue Protonix and Zantac DVT prophylaxis: As per surgical team Dispo: As per primary team Thank you for this consultation. We will continue to follow throughout hospital stay. Reviewed: Pt Seen/Exam by Me History Pt is doing well post-op. She is frustrated with the need for a second surgery due to infection from her initial surgery. No palpitations or chest pain, SOB. She feels fine otherwise. She has not eaten yet today, but no n/v. Agree with HPI/ROS as noted. General Appearance: no apparent distress, obese Respiratory: normal breath sounds, no respiratory distress Cardiovascular: normal peripheral pulses, regular rate, rhythm Gastrointestinal: non tender, soft Extremities: non-tender, no pedal edema Neurologic/Psychiatric: alert, oriented x 3 Skin Characteristics: normal color, warm/dry Assessment/Plan Agree with plan as outlined above PVCs post-op, asx with this and EKG/tele otherwise WNL Monitor overnight on tele Other medical issues stable and with no other issues post-op per anesthesia
[2017-06-02 15:04] LABS: CALCIUM 8.9 mg/dl (8.5-10.1); POTASSIUM 4.6 mmol/L (3.5-5.1)
[2017-06-02] MEDS: CEFAZOLIN IV 2,000 MG in SYRINGE 0 ML IV SCH (18:33)
[2017-06-02] MEDS ORDERED: RANITIDINE HCL 150 MG TAB PO SCH (21:00)
[2017-06-02] MEDS: RANITIDINE HCL 150 MG TAB PO SCH (21:30)
[2017-06-02] MEDS: DOCUSATE SODIUM/SENNA 50/8.6MG TAB PO SCH (21:31)
[2017-06-03] VITALS (7 sets, daily range): BP systolic 121–146; BP diastolic 59–76; PULSE 60–77; TEMP 36.2–36.9; O2SAT 92–98
[2017-06-03] MEDS: SODIUM CHLORIDE 0.9% 1000ML 1,000 ML IV SCH (00:01)
[2017-06-03] MEDS: CEFAZOLIN IV 2,000 MG in SYRINGE 0 ML IV SCH (03:22)
[2017-06-03] MEDS ORDERED: NURSING DECISION MEDICATION ORDER SCH (06:00)
[2017-06-03] MEDS ORDERED: OXYCODONE HCL IR 5 MG TAB (IMMEDIATE RELEASE) PO PRN (06:00)
[2017-06-03] MEDS: LEVOTHYROXINE 125 MCG TAB PO SCH (06:10)
[2017-06-03 06:45] LABS: HEMATOCRIT 29.4 % (37-47); HEMOGLOBIN 9.9 g/dL (12.0-16.0); IG# 0.13 K/uL (0.00-0.02); LYMPH % 14.5 %; LYMPH ABS # 1.33 K/uL (1.2-3.4); MEAN CELL VOLUME 88.6 fL (80-100); MEAN CORPUSCULAR HEMOGLOBIN 29.8 pg (25-34); MEAN CORPUSCULAR HGB CONC 33.7 g/dl (32-36); MEAN PLATELET VOLUME 8.4 fL (7.4-10.4); MONO % 6.3 %; MONO ABS # 0.58 K/uL (0.11-0.59); NEUT % 77.8 %; NEUT ABS # 7.13 K/uL (1.4-6.5); PLATELET COUNT 279 K/uL (130-400); RED CELL DISTRIBUTION WIDTH CV 13.5 % (11.5-14.5); RED CELL DISTRIBUTION WIDTH SD 43.9 fL (36.4-46.3); WHITE BLOOD COUNT 9.17 K/uL (4.8-10.8)
[2017-06-03 07:19] LABS: CALCIUM 8.5 mg/dl (8.5-10.1); CREATININE 1.04 mg/dl (0.60-1.20); POTASSIUM 4.4 mmol/L (3.5-5.1)
[2017-06-03] MEDS ORDERED: LEVOTHYROXINE 125 MCG TAB PO SCH (09:00)
[2017-06-03] MEDS ORDERED: PANTOprazole SOD 40 MG TAB PO SCH (09:00)
[2017-06-03] MEDS ORDERED: METHENAMINE HIPPURATE 1 GM TAB PO SCH (09:00)
[2017-06-03] MEDS ORDERED: ESCITALOPRAM OXALATE 20 MG TAB PO SCH (09:00)
[2017-06-03] MEDS: OXYCODONE HCL IR 5 MG TAB (IMMEDIATE RELEASE) PO PRN ×3 (09:41→20:40)
[2017-06-03] MEDS: ESCITALOPRAM OXALATE 20 MG TAB PO SCH (09:42)
[2017-06-03] MEDS: PANTOprazole SOD 40 MG TAB PO SCH (09:42)
[2017-06-03] MEDS: LOSARTAN/HCTZ 50-12.5 EA TAB PO SCH (09:42)
[2017-06-03] MEDS: METHENAMINE HIPPURATE 1 GM TAB PO SCH (09:42)
[2017-06-03] MEDS: DEXAMETHASONE INJ 8 MG in SYRINGE 0 ML IV SCH ×2 (09:42→22:28)
--- NOTE | 2017-06-03 10:11 | Anesthesiology Progress Note ---
Anesthesia Post Op Note Date & Time Jun 03, 2017 at 10:10 Vital Signs Vital Signs Past 12 Hours Date Time Temp Pulse Resp B/P (MAP) Pulse Ox O2 Delivery O2 Flow Rate FiO2 06/03/17 08:15 36.5 76 18 128/68 (88) 96 Room Air 06/03/17 08:00 Room Air 06/03/17 07:20 36.4 62 20 146/69 (94) 95 Room Air 06/03/17 04:02 Room Air 06/03/17 04:00 36.6 77 18 136/65 (88) 92 Room Air 06/03/17 00:01 Room Air 06/02/17 23:50 36.8 61 17 134/75 (94) 98 Room Air Notes Mental Status: alert / awake / arousable, participated in evaluation Pt Amnestic to Procedure: Yes Nausea / Vomiting: adequately controlled Pain: adequately controlled Airway Patency, RR, SpO2: stable & adequate BP & HR: stable & adequate Hydration State: stable & adequate Anesthetic Complications: no major complications apparent
--- NOTE | 2017-06-03 15:45 | Progress Note ---
Progress Note Date of Service Jun 03, 2017. Progress Note Patient's back pain is controlled. Her leg symptoms have markedly improved. She's been up and amatory this morning inset in the chair for several hours without difficulty. On exam she is good strength testing does appear comfortable. Assessment status post I&D lumbar spine. Plan at this time will maintain the KEVAN drain another 24 hours. Pending medicine's recommendation we will transfer to the orthopedic floor and hopefully discharge home Thursday.
[2017-06-03] MEDS: DOCUSATE SODIUM/SENNA 50/8.6MG TAB PO SCH (20:36)
[2017-06-03] MEDS: RANITIDINE HCL 150 MG TAB PO SCH (20:36)
--- NOTE | 2017-06-03 23:21 | Progress Note ---
Subjective Date of Service: Jun 03, 2017. Subjective Pt evaluation today including: conversation w/ patient, physical exam, chart review, lab review Jolie is a 66 year old female who is in the hospital for removal and replacement of a L5 pedicle screw. Medical consult was obtained as patient had multiple PVCs during surgery and recovery. Patient reports feeling well, and continues to be asymptomatic. Px denies palpitations, nausea, vomting, chest pain. Discussed with nurse. No significant PVCs noted on tele monitor. Review of Systems Constitutional: No fever, No chills Respiratory: No cough, No sputum Cardiac: No chest pain, No orthopnea Abdomen: No pain, No nausea Neurologic: No memory loss, No paralysis Heme: No abnormal bleeding/bruising Endo: No fatigue Skin: No rash, No itch All Other Systems: Reviewed and Negative Medications Current Inpatient Medications Medications (Trade) Dose Ordered Sig/Rishabh Route Start Time Stop Time Status Last Admin Dose Admin Hydromorphone HCl (Dilaudid Inj) 1 mg Q2H PRN IV 06/01/17 21:30 06/15/17 21:29 06/02/17 09:50 1 MG Oxycodone HCl (Roxicodone Immediate Rel Tab) `1-2 tabs for pain 1 tab ... Q4H PRN PO 06/01/17 21:30 06/15/17 21:29 06/03/17 20:40 10 MG Dexamethasone Sodium Phosphate 8 mg/Syringe 2 ml @ 1 mls/min Q12H IV 06/01/17 22:00 07/01/17 21:59 06/03/17 22:28 1 MLS/MIN Alprazolam (Xanax Tab) 0.5 mg DAILY PRN PO 06/01/17 22:30 07/01/17 22:29 Escitalopram Oxalate (Lexapro Tab) 20 mg QAM PO 06/02/17 09:00 07/02/17 08:59 06/03/17 09:42 20 MG HCTZ/Losartan Potassium (Hyzaar 50-12.5 Tab) 1 tab QAM PO 06/02/17 09:00 07/02/17 08:59 06/03/17 09:42 1 TAB Levothyroxine Sodium (Synthroid Tab) 125 mcg DAILYBB PO 06/02/17 06:00 07/02/17 05:59 06/03/17 06:10 125 MCG Methenamine Hippurate (Urex Tab) 1 gm QAM PO 06/02/17 09:00 06/07/17 08:59 06/03/17 09:42 1 GM Pantoprazole Sodium (Protonix Tab) 40 mg QAM PO 06/02/17 09:00 07/02/17 08:59 06/03/17 09:42 40 MG Ranitidine HCl (zANTac TAB) 150 mg HS PO 06/02/17 21:00 07/02/17 20:59 06/03/17 20:36 150 MG Miscellaneous Information (Order Awaiting Action) 1 ea QS N/A 06/02/17 00:00 07/02/17 00:00 Promethazine HCl 12.5 mg/Sodium Chloride 50.5 ml @ 202 mls/hr Q6H PRN IV 06/02/17 12:15 07/02/17 12:14 Ondansetron HCl (Zofran Inj) 4 mg Q6H PRN IV 06/02/17 12:15 07/02/17 12:14 Metoclopramide HCl (Reglan Inj) 10 mg Q6H PRN IV 06/02/17 12:15 07/02/17 12:14 Lorazepam (Ativan Tab) 0.5 mg Q8H PRN PO 06/02/17 12:15 07/02/17 12:14 Lorazepam 0.5 mg/ Syringe 0.25 ml @ 1 mls/min Q8H PRN IV 06/02/17 12:15 07/02/17 12:14 Pneumococcal Polysaccharide Vaccine 1 ea PRN PRN N/A 06/02/17 12:15 07/02/17 12:14 Influenza Virus Vacc Triv Types A&B 1 ea PRN PRN N/A 06/02/17 12:15 07/02/17 12:14 Polyethylene (Miralax Powder Packet) 17 gm Q6 PO 06/04/17 06:00 07/04/17 05:59 Bisacodyl (Dulcolax Supp) 10 mg DAILY PRN CA 06/02/17 12:15 07/02/17 12:14 Magnesium Hydroxide (Milk Of Magnesia Susp) 30 ml DAILY PRN PO 06/02/17 12:15 07/02/17 12:14 Oxycodone HCl (Roxicodone Immediate Rel Tab) 5-10mg prn moderate to sev... Q4H PRN PO 06/03/17 06:00 06/17/17 05:59 Acetaminophen (Tylenol Tab) 1,000 mg Q8H PRN PO 06/02/17 12:15 07/02/17 12:14 Acetaminophen 100 ml @ 400 mls/hr Q8H PRN IV 06/02/17 12:15 07/02/17 12:14 06/03/17 00:01 400 MLS/HR Naloxone HCl (Narcan Inj) 0.1 mg Q5M PRN IV 06/02/17 12:15 07/02/17 12:14 Senna/Docusate Sodium (Senokot S Tab) 2 tab HS PO 06/02/17 21:00 07/02/17 20:59 06/03/17 20:36 2 TAB Sodium Biphosphate/ Sodium Phosphate (Fleet Enema) 132 ml ONE PRN CA 06/02/17 12:15 07/02/17 12:14 Hydroxyzine HCl (Vistaril Tab) 25 mg Q8H PRN PO 06/02/17 12:15 07/02/17 12:14 Al Hydroxide/Mg Hydroxide (Maalox Susp) 30 ml Q6H PRN PO 06/02/17 12:15 07/02/17 12:14 Diphenhydramine HCl (Benadryl Cap) 25 mg Q6H PRN PO 06/02/17 12:15 07/02/17 12:14 Hydromorphone HCl (Dilaudid Inj) 0.5 mg Q3H PRN IV 06/02/17 12:45 06/16/17 12:44 Hydromorphone HCl (Dilaudid Inj) 1 mg Q3H PRN IV 06/02/17 12:45 06/16/17 12:44 Hydralazine HCl (HydrALAZINE INJ) 10 mg Q6H PRN IV. 06/02/17 13:30 07/02/17 13:29 Objective Vital Signs Date Time Temp Pulse Resp B/P (MAP) Pulse Ox O2 Delivery O2 Flow Rate FiO2 06/03/17 19:02 36.2 67 18 121/59 (79) 95 Room Air 06/03/17 16:00 Room Air 06/03/17 15:20 36.9 68 18 132/74 (93) 96 Room Air 06/03/17 12:15 36.9 73 18 144/66 (92) 98 Room Air 06/03/17 12:00 Room Air 06/03/17 08:15 36.5 76 18 128/68 (88) 96 Room Air 06/03/17 08:00 Room Air 06/03/17 07:20 36.4 62 20 146/69 (94) 95 Room Air 06/03/17 04:02 Room Air 06/03/17 04:00 36.6 77 18 136/65 (88) 92 Room Air 06/03/17 00:01 Room Air 06/02/17 23:50 36.8 61 17 134/75 (94) 98 Room Air Physical Exam General Appearance: WD/WN, no apparent distress Neck: supple, no adenopathy Respiratory/Chest: chest non-tender, lungs clear, normal breath sounds Cardiovascular: regular rate, rhythm, no edema, no gallop Abdomen: normal bowel sounds, non tender, soft Extremities: normal range of motion, non-tender Skin: normal color Lymphatic: no adenopathy Laboratory Results Last 24 Hours Test 06/03/17 06:20 White Blood Count 9.17 K/uL Red Blood Count 3.32 M/uL Hemoglobin 9.9 g/dL Hematocrit 29.4 % Mean Corpuscular Volume 88.6 fL Mean Corpuscular Hemoglobin 29.8 pg Mean Corpuscular Hemoglobin Concent 33.7 g/dl Platelet Count 279 K/uL Mean Platelet Volume 8.4 fL Neutrophils (%) (Auto) 77.8 % Lymphocytes (%) (Auto) 14.5 % Monocytes (%) (Auto) 6.3 % Eosinophils (%) (Auto) 0.0 % Basophils (%) (Auto) 0.0 % Neutrophils # (Auto) 7.13 K/uL Lymphocytes # (Auto) 1.33 K/uL Monocytes # (Auto) 0.58 K/uL Eosinophils # (Auto) 0.00 K/uL Basophils # (Auto) 0.00 K/uL RDW Standard Deviation 43.9 fL RDW Coefficient of Variation 13.5 % Immature Granulocyte % (Auto) 1.4 % Immature Granulocyte # (Auto) 0.13 K/uL Sodium Level 136 mmol/L Potassium Level 4.4 mmol/L Chloride Level 100 mmol/L Carbon Dioxide Level 29 mmol/L Anion Gap 7.0 mmol/L Blood Urea Nitrogen 24 mg/dl Creatinine 1.04 mg/dl Est Creatinine Clear Calc Drug Dose 57.1 ml/min Estimated GFR () 64.4 Estimated GFR (Non- 55.6 BUN/Creatinine Ratio 22.7 Random Glucose 135 mg/dl Calcium Level 8.5 mg/dl Assessment and Plan Patient is a 66 y/o female, with PMHx of HTN, hypothyroidism, CKD stage III, depression, and GERD, s/p evacuation of hematoma seroma lumbar spine, removal of L5 pedicle screw on the right, and placement of L5 pedicle screw in the right by Dr. Goodson on 06/02. s/p evacuation of hematoma seroma lumbar spine, removal of L5 pedicle screw on the right, and placement of L5 pedicle screw in the right by Dr. Goodson on 05/14: - Surgical management, pain management, PT/OT, and DVT prophylaxis as per primary team - Follow postop CBC and PRP PVCs- asymptomatic: - Continue on tele for cardiac monitoring - No significant PVCs. These have been sporadic. - Labs have been normal. - May consider BB and CCB if PVCs become frequent or symptomatic, - however, patient is asymptomatic at this time- will monitor overnight HTN: - Hold Losartan/HCTZ pending postop PRP - Hydralazine IV 10 mg q6hrs PRN sbp >180 and dbp >100 Hypothyroidism: Continue Synthroid 125 mcg daily CKD stage III: Follow PRP Depression: Continue Xanax and Lexapro Recurrent UTI: Continue Hiprex GERD: Continue Protonix and Zantac DVT prophylaxis: As per surgical team Dispo: As per primary team
[2017-06-03] MEDS ORDERED: NURSING VERBAL MED ORDER ONE (23:30)
[2017-06-04] MEDS: METHENAMINE HIPPURATE 1 GM TAB PO SCH ×3 (00:03→20:31)
[2017-06-04 03:33] VITALS: BP 155/74; PULSE 56; TEMP 36.5; O2SAT 96
[2017-06-04] MEDS: POLYETHYLENE (MIRALAX) 17 GM PACK PO SCH ×4 (06:13→23:22)
[2017-06-04] MEDS: LEVOTHYROXINE 125 MCG TAB PO SCH (06:13)
[2017-06-04] MEDS: OXYCODONE HCL IR 5 MG TAB (IMMEDIATE RELEASE) PO PRN ×2 (06:13→20:28)
[2017-06-04 07:30] LABS: CALCIUM 8.7 mg/dl (8.5-10.1); POTASSIUM 4.4 mmol/L (3.5-5.1)
[2017-06-04 07:35] VITALS: BP 132/70; PULSE 74; TEMP 36.4; O2SAT 96
[2017-06-04] MEDS: DEXAMETHASONE INJ 8 MG in SYRINGE 0 ML IV SCH ×2 (09:05→21:44)
[2017-06-04] MEDS: PANTOprazole SOD 40 MG TAB PO SCH (09:05)
[2017-06-04] MEDS: LOSARTAN/HCTZ 50-12.5 EA TAB PO SCH (09:05)
[2017-06-04] MEDS: ESCITALOPRAM OXALATE 20 MG TAB PO SCH (09:06)
[2017-06-04 11:25] VITALS: BP 159/72; PULSE 69; TEMP 36.7; O2SAT 96
--- NOTE | 2017-06-04 11:43 | Progress Note ---
Subjective Date of Service: Jun 04, 2017. Subjective Pt evaluation today including: conversation w/ patient, physical exam, lab review, review of inpatient medication list Pain: improving PO Intake: adequate Voiding: major catheter in place patient doing well overall reviewed tele, very few PVC's, no further need to monitor H/H stable, vitals stable, activity increasing Review of Systems Constitutional: + weakness, + fatigue Musculoskeletal: + joint pain (back, no pain down the legs) All Other Systems: Reviewed and Negative Medications Current Inpatient Medications Medications (Trade) Dose Ordered Sig/Rishabh Route Start Time Stop Time Status Last Admin Dose Admin Hydromorphone HCl (Dilaudid Inj) 1 mg Q2H PRN IV 06/01/17 21:30 06/15/17 21:29 06/02/17 09:50 1 MG Oxycodone HCl (Roxicodone Immediate Rel Tab) `1-2 tabs for pain 1 tab ... Q4H PRN PO 06/01/17 21:30 06/15/17 21:29 06/04/17 06:13 5 MG Dexamethasone Sodium Phosphate 8 mg/Syringe 2 ml @ 1 mls/min Q12H IV 06/01/17 22:00 07/01/17 21:59 06/04/17 09:05 1 MLS/MIN Alprazolam (Xanax Tab) 0.5 mg DAILY PRN PO 06/01/17 22:30 07/01/17 22:29 Escitalopram Oxalate (Lexapro Tab) 20 mg QAM PO 06/02/17 09:00 07/02/17 08:59 06/04/17 09:06 20 MG HCTZ/Losartan Potassium (Hyzaar 50-12.5 Tab) 1 tab QAM PO 06/02/17 09:00 07/02/17 08:59 06/04/17 09:05 1 TAB Levothyroxine Sodium (Synthroid Tab) 125 mcg DAILYBB PO 06/02/17 06:00 07/02/17 05:59 06/04/17 06:13 125 MCG Pantoprazole Sodium (Protonix Tab) 40 mg QAM PO 06/02/17 09:00 07/02/17 08:59 06/04/17 09:05 40 MG Ranitidine HCl (zANTac TAB) 150 mg HS PO 06/02/17 21:00 07/02/17 20:59 06/03/17 20:36 150 MG Miscellaneous Information (Order Awaiting Action) 1 ea QS N/A 06/02/17 00:00 07/02/17 00:00 Promethazine HCl 12.5 mg/Sodium Chloride 50.5 ml @ 202 mls/hr Q6H PRN IV 06/02/17 12:15 07/02/17 12:14 Ondansetron HCl (Zofran Inj) 4 mg Q6H PRN IV 06/02/17 12:15 07/02/17 12:14 Metoclopramide HCl (Reglan Inj) 10 mg Q6H PRN IV 06/02/17 12:15 07/02/17 12:14 Lorazepam (Ativan Tab) 0.5 mg Q8H PRN PO 06/02/17 12:15 07/02/17 12:14 Lorazepam 0.5 mg/ Syringe 0.25 ml @ 1 mls/min Q8H PRN IV 06/02/17 12:15 07/02/17 12:14 Pneumococcal Polysaccharide Vaccine 1 ea PRN PRN N/A 06/02/17 12:15 07/02/17 12:14 Influenza Virus Vacc Triv Types A&B 1 ea PRN PRN N/A 06/02/17 12:15 07/02/17 12:14 Polyethylene (Miralax Powder Packet) 17 gm Q6 PO 06/04/17 06:00 07/04/17 05:59 06/04/17 06:13 17 GM Bisacodyl (Dulcolax Supp) 10 mg DAILY PRN [place] 06/02/17 12:15 07/02/17 12:14 Magnesium Hydroxide (Milk Of Magnesia Susp) 30 ml DAILY PRN PO 06/02/17 12:15 07/02/17 12:14 Oxycodone HCl (Roxicodone Immediate Rel Tab) 5-10mg prn moderate to sev... Q4H PRN PO 06/03/17 06:00 06/17/17 05:59 Acetaminophen (Tylenol Tab) 1,000 mg Q8H PRN PO 06/02/17 12:15 07/02/17 12:14 Acetaminophen 100 ml @ 400 mls/hr Q8H PRN IV 06/02/17 12:15 12/21/17 12:14 06/03/17 00:01 400 MLS/HR Naloxone HCl (Narcan Inj) 0.1 mg Q5M PRN IV 06/02/17 12:15 07/02/17 12:14 Senna/Docusate Sodium (Senokot S Tab) 2 tab HS PO 06/02/17 21:00 07/02/17 20:59 06/03/17 20:36 2 TAB Sodium Biphosphate/ Sodium Phosphate (Fleet Enema) 132 ml ONE PRN [place] 06/02/17 12:15 07/02/17 12:14 Hydroxyzine HCl (Vistaril Tab) 25 mg Q8H PRN PO 06/02/17 12:15 07/02/17 12:14 Al Hydroxide/Mg Hydroxide (Maalox Susp) 30 ml Q6H PRN PO 06/02/17 12:15 07/02/17 12:14 Diphenhydramine HCl (Benadryl Cap) 25 mg Q6H PRN PO 06/02/17 12:15 07/02/17 12:14 Hydromorphone HCl (Dilaudid Inj) 0.5 mg Q3H PRN IV 06/02/17 12:45 06/16/17 12:44 Hydromorphone HCl (Dilaudid Inj) 1 mg Q3H PRN IV 06/02/17 12:45 06/16/17 12:44 Hydralazine HCl (HydrALAZINE INJ) 10 mg Q6H PRN IV. 06/02/17 13:30 07/02/17 13:29 Methenamine Hippurate (Urex Tab) 1 gm BID PO 06/03/17 23:45 06/08/17 23:44 06/04/17 09:06 1 GM Objective Vital Signs Date Time Temp Pulse Resp B/P (MAP) Pulse Ox O2 Delivery O2 Flow Rate FiO2 06/04/17 11:07 36.4 74 18 96 2.0 06/04/17 08:00 Room Air 06/04/17 07:35 36.4 74 18 132/70 (90) 96 Room Air 06/04/17 04:00 Room Air 06/04/17 03:33 36.5 56 18 155/74 (101) 96 Room Air 06/03/17 23:59 Room Air 06/03/17 23:38 36.7 60 17 141/76 (97) 97 Room Air 06/03/17 20:00 Room Air 06/03/17 19:02 36.2 67 18 121/59 (79) 95 Room Air 06/03/17 16:00 Room Air 06/03/17 15:20 36.9 68 18 132/74 (93) 96 Room Air 06/03/17 12:15 36.9 73 18 144/66 (92) 98 Room Air 06/03/17 12:00 Room Air Physical Exam General Appearance: no apparent distress, + obese Eyes: normal inspection, EOMI, sclerae normal ENT: normal ENT inspection, hearing grossly normal, pharynx normal Neck: supple, no adenopathy, no JVD, trachea midline Respiratory/Chest: chest non-tender, lungs clear, normal breath sounds, no respiratory distress, no accessory muscle use Cardiovascular: regular rate, rhythm, no edema, no gallop, no JVD, no murmur Abdomen: normal bowel sounds, non tender, soft, no organomegaly Extremities: no pedal edema, no calf tenderness, pelvis stable, + pertinent finding (decreased ROM of lower back) Neurologic/Psychiatric: whipper beater II-XII nml as tested, alert, normal mood/affect, oriented x 3, + motor weakness Skin: normal color, warm/dry, no rash Lymphatic: no adenopathy Laboratory Results Last 24 Hours Test 06/04/17 06:21 Sodium Level 133 mmol/L Potassium Level 4.4 mmol/L Chloride Level 98 mmol/L Carbon Dioxide Level 29 mmol/L Anion Gap 6.0 mmol/L Blood Urea Nitrogen 29 mg/dl Creatinine 1.00 mg/dl Est Creatinine Clear Calc Drug Dose 60.7 ml/min Estimated GFR () 67.5 Estimated GFR (Non- 58.3 BUN/Creatinine Ratio 29.4 Random Glucose 139 mg/dl Calcium Level 8.7 mg/dl Assessment and Plan Patient is a 66 y/o female, with PMHx of HTN, hypothyroidism, CKD stage III, depression, and GERD, s/p evacuation of hematoma seroma lumbar spine, removal of L5 pedicle screw on the right, and placement of L5 pedicle screw in the right by Dr. Goodson on 06/02. s/p evacuation of hematoma seroma lumbar spine, removal of L5 pedicle screw on the right, and placement of L5 pedicle screw in the right by Dr. Goodson on 06/02 : - Surgical management, pain management, PT/OT, and DVT prophylaxis as per primary team - Hb and Cr stable, vitals stable PVCs- asymptomatic: - very few occurrences, no symptoms, will transfer off of tele today HTN: - resume Losartan/HCTZ, Cr is stable - Hydralazine IV 10 mg q6hrs PRN sbp >180 and dbp >100 Hypothyroidism: Continue Synthroid 125 mcg daily CKD stage III: Cr stable at 1.0 Depression: Continue Xanax and Lexapro Recurrent UTI: Continue Hiprex GERD: Continue Protonix and Zantac DVT prophylaxis: As per surgical team safe to transfer to medical floor will sign off at this time as her medical issues are all stable, please page Dr. Younger for any new issues or questions
--- NOTE | 2017-06-04 12:06 | Progress Note ---
Progress Note Date of Service Jun 04, 2017. Progress Note Back pain is well-controlled. Leg pain markedly improved. On exam patient is here bedside as good strength testing appears quite comfortable. KEVAN drain down to 5 mL. Assessment status post I&D lumbar spine. Plan at this time we will discontinue the drain this evening I'll reassess her tomorrow morning anticipate discharge home.
--- NOTE | 2017-06-04 12:10 | Discharge Instructions ---
Discharge Instructions Date of Service Jun 04, 2017. Admission Reason for Admission: Post-Op Leg/Back Pain Discharge Discharge Diagnosis / Problem: lumbar spinal stenosis Discharge Goals Goal(s): Improve function Activity Recommendations Activity Limitations: per Instructions/Follow-up section . Instructions / Follow-Up Instructions / Follow-Up ACTIVITY RECOMMENDATIONS: SELF CARE INSTRUCTIONS AFTER THORACIC/LUMBAR FUSIONS 1. You may walk to your tolerance. It is good exercise for your legs and back. Expect some back and intermittent leg aches and pains. 2. You may perform "counter-top" level activities (make a sandwich, christina with a project, etc.). 3. No bending or lifting of more than 10 pounds or back twisting of any nature (roll like a log when turning in bed). 4. You may ride in a car for 20-30 minutes at a time. No driving until after your first visit with your doctor. 5. Frequent changes of position and restricting sitting to 30 minutes at a time will help limit the amount of back spasms and stiffness you may experience. 6. You may discontinue the use of ambulatory aids (cane, crutches, etc.) once your strength and confidence allow. 7. You may optical engineer the shower and let water strike your incision when you arrive home at least once daily. Do not take a tub bath, sit in a hot tub or go into a swimming pool until after your first recheck in the office. SPECIAL CARE INSTRUCTIONS: VERY IMPORTANT TO READ AND REVIEW A. Your surgical incision has been closed with a cosmetic suture under the skin that will dissolve in about 6 weeks. In 14 days, you can use a pair of clean scissors and cut the suture that is left outside of the skin at the ends of your incision. 1. The small skin tapes can be removed 7 days after surgery if they have not fallen off by that point. 2. You may keep the wound open to air as much as possible to promote healing after post-op day number 5 unless told otherwise by your doctor. 3. If you think the wound looks like it is becoming infected (redness or worsening drainage) and/or you are experiencing fever, chill or worsening back pain and muscle spasms, contact the office so that we may evaluate you as soon as possible. B. Complications are uncommon, but please contact us if you have any signs or symptoms of: 1. wound infection (fever higher than 102.5 degrees F, redness, separation of wound, drainage, or increasing pain from the incision) 2. blood clots in legs (pain, swelling, redness and warmth in legs) 3. urinary tract infection (fever higher than 102.5 degrees F, burning upon urination or increased frequency of urination) 4. nerve problems (inability to walk on your toes or heels, numbness, loss of bowel or bladder control) 5. any other symptoms that concern you C. Please call the office at if you have any concerns or questions about your operation or recovery. D. No smoking! Smoking drastically decreases the chance of a solid fusion. E. Do not take any anti-inflammatory medications (Indocin, Advil, Motrin, Aspirin, Naprosyn, etc.) as these may inhibit the chance of a solid fusion. Tylenol is okay to take for pain. MANAGING PAIN AFTER SPINAL SURGERY 1. Narcotic medication is intended for short-term use and will be provided for surgical pain. Surgical pain usually lasts for a period of 4-6 weeks. Narcotic medication includes Percocet, Vicodin, Darvocet, Tylenol #3 or Lortab. 2. Longer-term pain is more appropriately treated with non-narcotic medication such as Tylenol ES. 3. Muscle spasm is not appropriately treated with narcotics. Muscle relaxers such as Soma, Flexeril or Skelaxin can be used along with Tylenol ES. 4. Remember that we all live with some "aches and pains". This is not unusual or uncommon after an injury or as we get older. a. Back pain is expected and may include muscle spasms for 4 to 6 weeks after surgery. The pain should gradually improve. If the pain worsens for no apparent reason, please contact the office. b. Intermittent leg pain may also be experienced and should not be concerned about unless it worsens for no apparent reason. If so, please contact the office. 5. We will provide appropriate medication within the normal guidelines of their prescribed use. We will also be very cautious and aware of potential abuse and extended duration of patients' medication needs. a. Pain medications are for your comfort and to assist with sleep and rest so that the tissue can heal. They are not provided in order to return to normal activity and should not be used through the day. To do so or worsening pain at night can result from ongoing tissue damage and development of tolerance to the prescribed medicine. 6. Please allow 2-3 days to process refills. Prescriptions will not be mailed but must be picked up at the office. FOLLOW UP VISIT: Keep your scheduled follow-up appointment. Any questions, please call the office at . Current Hospital Diet Patient's current hospital diet: Regular Diet Discharge Diet Recommended Diet: Regular Diet Procedures Procedures Performed: #1 evacuation of hematoma seroma lumbar spine. #2 removal of L5 pedicle screw on the right. #3 placement of L5 pedicle screw in the right. Pending Studies Studies pending at discharge: no Medical Emergencies . Who to Call and When: Medical Emergencies: If at any time you feel your situation is an emergency, please call 911 immediately. . Non-Emergent Contact Non-Emergency issues call your: Primary Care Provider . "Provider Documentation" section prepared by Tyree Goodson. . VTE Core Measure Inpt VTE Proph given/why not?: Katie Murray, SCD's
[2017-06-04 15:08] VITALS: BP 142/70; PULSE 69; TEMP 36.4; O2SAT 96
[2017-06-04] MEDS ORDERED: POLYETHYLENE (MIRALAX) 17 GM PACK ONE (18:52)
[2017-06-04] MEDS: DOCUSATE SODIUM/SENNA 50/8.6MG TAB PO SCH (20:31)
[2017-06-04] MEDS: RANITIDINE HCL 150 MG TAB PO SCH (20:31)
[2017-06-04 22:49] VITALS: BP 144/74; PULSE 62; TEMP 36.8; O2SAT 95
[2017-06-05] MEDS: LEVOTHYROXINE 125 MCG TAB PO SCH (05:40)
[2017-06-05] MEDS: POLYETHYLENE (MIRALAX) 17 GM PACK PO SCH (05:40)
[2017-06-05 06:52] VITALS: BP 155/76; PULSE 59; TEMP 36.6; O2SAT 98
[2017-06-05] MEDS: OXYCODONE HCL IR 5 MG TAB (IMMEDIATE RELEASE) PO PRN ×2 (09:06→09:49)
[2017-06-05] MEDS: LOSARTAN/HCTZ 50-12.5 EA TAB PO SCH (09:45)
[2017-06-05] MEDS: ESCITALOPRAM OXALATE 20 MG TAB PO SCH (09:45)
[2017-06-05] MEDS: METHENAMINE HIPPURATE 1 GM TAB PO SCH (09:45)
[2017-06-05] MEDS: PANTOprazole SOD 40 MG TAB PO SCH (09:46)
[2017-06-05] MEDS: DEXAMETHASONE INJ 8 MG in SYRINGE 0 ML IV SCH (09:50)
--- NOTE | 2017-06-05 13:17 | Discharge Summary ---
Orthopedic Discharge Summary Admission Date/Reason Jun 01, 2017 at 20:59 Post-Op Leg/Back Pain. Discharge Date/Disposition Jun 05, 2017 Home Diagnosis Principal Diagnosis: Lumbar spinal stenosis with postoperative seroma Admission Physical Exam As per Admitting History & Physical. Hospital Course Patient was admitted the hospital postoperatively with a seroma. She underwent I&D tolerated this very well. KEVAN drain was placed postoperatively decreased appropriately over the course of a few days leg pain improved subsequently discharge home. Discharge orders and instructions found the chart for further review. Discharge Instructions Please refer to the electronic Patient Visit Report (Discharge Instructions) for additional information.
[2017-06-05 14:20] VITALS: BP 155/76; PULSE 59; TEMP 36.6; O2SAT 98
== END 2017-06-05 16:19 | disposition home or self-care (01) | DRG 908 ==
LOC: C.MSW 20:59 → ENRESERV 06-02 13:34 → C.2T 06-02 14:18 → ENRESERV 06-04 10:52 → C.MSW 06-04 12:30
PROVIDERS: ADMIT Orthopaedic Surgery Orthopaedic Surgery of the Spine; ATTEND Orthopaedic Surgery Orthopaedic Surgery of the Spine
PROC: 0SW004Z Revision of Internal Fixation Device in Lumbar Vertebral Joint, Open Approach (ICD-10-PCS; principal; 2017-06-02 09:00)
PROC: 0JC70ZZ Extirpation of Matter from Back Subcutaneous Tissue and Fascia, Open Approach (ICD-10-PCS; principal; 2017-06-02 09:00)
DX: G97.63 Postprocedural seroma of a nervous system organ or structure following a nervous system procedure (principal); T84.226A Displacement of internal fixation device of vertebrae, initial encounter; N39.0 Urinary tract infection, site not specified; E03.9 Hypothyroidism, unspecified; N18.3 Chronic kidney disease, stage 3 (moderate); I12.9 Hypertensive chronic kidney disease with stage 1 through stage 4 chronic kidney disease, or unspecified chronic kidney disease; K21.9 Gastro-esophageal reflux disease without esophagitis; F32.9 Major depressive disorder, single episode, unspecified; I49.3 Ventricular premature depolarization; Z79.899 Other long term (current) drug therapy; Y83.1 Surgical operation with implant of artificial internal device as the cause of abnormal reaction of the patient, or of later complication, without mention of misadventure at the time of the procedure; Z98.1 Arthrodesis status

== ENCOUNTER → 2017-07-16 | Outpatient (CLI) | payer OTHER, MEDICARE ==
[~2017-07-16] MED LIST changes: -[UNRECOGNIZED DRUG - REMARK]
== END | disposition home or self-care (01) ==
LOC: C.LABSPEC 13:45
PROVIDERS: ATTEND Family Medicine
DX: Z01.89 Encounter for other specified special examinations (principal)